=== PATIENT | male | born 1995 | race Caucasian/White ===

== ENCOUNTER 2018-09-08 23:29 | Inpatient (IN) | payer MEDICAID ==
[~2018-09-08] VITALS: Ht 121.9 cm; Wt 47.2 kg
[~2018-09-08 23:29] MED LIST: ACET650S11 RC; BISA-79 RC; BUDE0.5A4 IH; EPOE1VIA7 SQ; FAMO20VI10 IV; IPRA3AMP23 IH; LACO200V IVP; LEVE500V IVP; MVI IV; ONDA4VIA52 IVP; SOD62.5V IV; TPN
--- NOTE | 2018-09-08 23:45 | NUR ---
RN NOTES RECEIVED REPORT FROM [facility] . PT ARRIVED WITH EMT'S ON MECH VENT. PT HAS A SHILEY 8 XLT TRACH, TRACH SECURE AND PATENT. PT CONNECTED TO MECH VENT WITH THE FOLLOWING SETTINGS AC 14, 500, 35%, +5. PT 02 SAT IS 97% AND HR OF 141. VENT PLUGGED INTO RED OUTLET. ALARMS ARE ON AND AUDIBLE. PT SX'D. AMBU BAG IS AT BEDSIDE. PATIENT IS A/OX2. PATIENT PLACED ON BIODIESEL PRODUCT DEVELOPMENT MANAGER WITH ST. OSTOMY BAG IS IN PLACE, INTACT WITH NO LEAKAGE NOTED AT THIS TIME. RIGHT CHEST WALL PORT A CATH IS PATIENT AND INTACT. SKIN ASSESSMENT IS DONE. ALL SAFETY MEASURES ARE IMPLEMENTED, BED IN LOW, LOCKED POSITION, CALL LIGHT IN REACH. WILL CONTINUE TO MONITOR PATIENT CLOSELY.
[2018-09-09] VITALS: BP 153/68
[2018-09-09] MEDS ORDERED: CEFEPIME 1 GM in IV D5W 50 ML IV SCH ×4
[2018-09-09] MEDS ORDERED: TPN/PPN PER PHARMACY XX PRN
--- NOTE | 2018-09-09 00:09 | NUR ---
RT NOTE PT ARRIVED WITH EMT'S ON MECH VENT. PT HAS A SHILEY 8 XLT TRACH, TRACH SECURE AND PATENT. PT CONNECTED TO MECH VENT WITH THE FOLLOWING SETTINGS AC 14, 500, 35%, +5. PT 02 SAT IS 97% AND HR OF 141. RN IS AWARE AND AT BEDSIDE. VENT PLUGGED INTO RED OUTLET. ALARMS ARE ON AND AUDIBLE. PT SX'D. AMBU BAG IS AT BEDSIDE. Addendum: 09/09/18 at 0013 by MARIA C SALAZAR RT Amended: Links added.
[2018-09-09] MEDS ORDERED: IPRATROPIUM NEB FS 0.5 MG/2.5 ML AMPUL.NEB NEB PRN (00:30)
[2018-09-09] MEDS ORDERED: ALBUTEROL FS 2.5 MG/0.5 ML VIAL.NEB NEB PRN (00:30)
[2018-09-09 04:00] VITALS: BP 105/64
[2018-09-09] MEDS: LORAZEPAM INJ 2 MG/ML VIAL IV PRN (04:22)
[2018-09-09 07:36] LABS: BASOPHILS % (AUTO) 0.1 % (0.0-2.0); EOSINOPHILS % (AUTO) 0.3 % (0.0-6.0); HEMATOCRIT 46 % (39-51); HEMOGLOBIN 14.4 g/dL (13.5-17.5); LYMPHOCYTES # (AUTO) 0.3 /CMM (0.8-4.8); LYMPHOCYTES % (AUTO) 1.9 % (20.0-44.0); MEAN CORPUSCULAR HGB CONC 31 g/dl (31.0-36.0); MEAN CORPUSCULAR VOLUME 87 fL (80-96); MONOCYTES # (AUTO) 0.4 /CMM (0.1-1.30); MONOCYTES % (AUTO) 2.9 % (2.0-12.0); NEUTROPHILS # (AUTO) 14.1 /CMM (1.8-8.9); NEUTROPHILS % (AUTO) 94.8 % (43.0-81.0); PLATELET COUNT (AUTO) 130 /CMM (150-450); RED BLOOD CELL COUNT(AUTO) 5.36 MIL/uL (4.5-6.0); WHITE BLOOD COUNT (AUTO) 14.8 K/uL (4.3-11.0)
[2018-09-09] MEDS: PANTOPRAZOLE 40 MG VIAL IV SCH (07:46)
[2018-09-09 07:50] LABS: CALCIUM, SERUM 8.7 mg/dL (8.5-10.1); CREATININE 1.1 mg/dL (0.6-1.3); POTASSIUM 4.5 mmol/L (3.5-5.1)
[2018-09-09 08:00] VITALS: BP 99/56
--- NOTE | 2018-09-09 08:00 | NUR ---
RN NOTE: RECEIVED PATIENT IN BED, ASLEEP BUT SPONTANEOUSLY OPEN HIS EYES. VENT-TRACH DEPENDENT SATURATING CURRENT VENT SETTING WITH O2 SATURATION 98%. PATIENT'S RECTAL TEMP WAS 103.9F. COOLING MEASURES GIVEN WITH TYLENOL SUPPOSITORY WAS ADMINISTERED PER MD ORDER. NOTED WITH A (R) UPPER CHEST PERMACATH INTACT WITH 1 PORT AND WAS FLUSHING WELL. PATIENT ON (B) SOFT WRIST RESTRAINTS DUE TO ATTEMPTS OF PULLING HIS TRACHEOSTOMY. HOB ELEVATED. KEPT NPO. AWAITING FOR THE PHARMACY FOR THE TPN ORDER. WILL CONTINUE TO CLOSELY MONITOR THE PATIENT'S CONDITION. BED ALARMED AND LOCKED AT ALL TIMES. CALL LIGHT WITHIN REACH. COLOSTOMY NOTED WITH LIQUID STOOL. CURRENTLY ON CONTACT ISOLATION R/O C. DIFF. NEEDS ANTICIPATED.
[2018-09-09] MEDS: ACETAMINOPHEN 650 MG/SUPP.RECT RC PRN ×2 (08:06→16:15)
[2018-09-09] MEDS ORDERED: METO5VIA6 IV (08:19)
[2018-09-09] MEDS ORDERED: BLOO-668 IN (08:19)
[2018-09-09] MEDS ORDERED: INSU100V3 SQ (08:19)
[2018-09-09] MEDS ORDERED: BUDE0.5A IH (08:19)
[2018-09-09] MEDS ORDERED: NA P133E RC (08:19)
[2018-09-09] MEDS ORDERED: LORA2VIA6 IVP (08:19)
[2018-09-09] MEDS ORDERED: PANT40VI IV (08:19)
--- NOTE | 2018-09-09 09:30 | NUR ---
RN NOTE: RECHECKED PATIENT'S RECTAL TEMPERATURE AND IT WAS NOTED 99.9F.
[2018-09-09 12:00] VITALS: BP 105/56
--- NOTE | 2018-09-09 12:31 | NUR ---
RN NOTE: COLLECTED STOOL SPECIMEN FROM THE PATIENT. LIQUID STOOL NOTED. RECEIVED ORDER STOOL FOR C. DIFF, NOTED AND CARRIED OUT. SPECIMEN SENT TO LAB.
[2018-09-09] MEDS ORDERED: DEXTROSE 50%-WATER 50 ML DISP.SYRIN IV PRN (14:30)
[2018-09-09] MEDS ORDERED: TPN BAG #1 IV PRN ×8 (14:30)
[2018-09-09] MEDS ORDERED: FEE TPN 1 MIN EA MC ONE (14:33)
--- NOTE | 2018-09-09 15:23 | NUR ---
RN NOTE: CALLED AND PAGED ANGELA MANZANO NP RE: THE PROCALCITONIN RESULT. AWAITING FOR SIEVE MAKER'S RESPONSE.
--- NOTE | 2018-09-09 15:33 | NUR ---
RN NOTE: RECEIVED A RESPONSE FROM ANGELA MANZANO NP AND SHE GAVE NO NEW ORDER.
[2018-09-09 16:00] VITALS: BP 90/66
--- NOTE | 2018-09-09 16:11 | NUR ---
RN NOTE: PATIENT NOTED WITH 101.1F RECTAL TEMP. COOLING MEASURES PROVIDED. REQUESTED FOR A COOLING BLANKET. REMOVED EXTRA LINENS ON THE PATIENT'S BED. PAGED JERI MILLER ABOUT THIS PATIENT'S CONDITION.
[2018-09-09] MEDS ORDERED: IV NS 0.9% 1,000 ML IV STA (16:51)
--- NOTE | 2018-09-09 16:51 | NUR ---
RN NOTE: REPORTED TO JERI MILLER THAT THE PATIENT WAS HAVING LOW BLOOD PRESSURE AND STILL CONTINUED TO HAVE A HIGH GRADE FEVER 101F. TYLENOL SUPPOSITORY WAS GIVEN. COOLING MEASURES WERE PROVIDED. PER JERI MILLER OK TO GIVE 1L NS BOLUS NOW. ORDER, NOTED AND CARRIED OUT.
[2018-09-09] MEDS: BLOOD SUGAR DIAGNOSTIC 1 EACH STRIP IN SCH ×2 (17:38→23:56)
--- NOTE | 2018-09-09 17:42 | NUR ---
RN NOTE: INFORMED ANGELA MANZANO NP RE: THE PATIENT'S POOR VENOUS ACCESS AND HAS AN ORDER FOR IVF AND A TPN. JERI MILLER GAVE AN ORDER FOR MIDLINE INSERTION, NOTED AND CARRIED OUT.
--- NOTE | 2018-09-09 18:00 | NUR ---
RN NOTE: SPOKE WITH JERI RUDD (INFECTIOUS DISEASE) AND CLARIFIED WITH HER RE: THE DIFLUCAN IV AND BLOOD CULTURE ORDER. DATA ANALYST ETL DEVELOPER WAS INFORMED THAT THE PATIENT ALREADY GOT A BLOOD CULTURES DONE UPON ADMISSION. PER JERI RUDD SHE WANTED TO REPEAT IT. ACCDG. TO JERI RUDD SHE WANTED THE BLOOD CULTURE TO BE DONE PRIOR TO THE ADMINISTRATION OF THE DIFLUCAN. AWAITING FOR [facility] CONTRACT REPRESENTATIVE TO COME AND DRAW THE BLOOD CULTURE. WILL HOLD THE DIFLUCAN ADMINISTRATION UNTIL BLOOD CULTURE WILL BE DONE.
[2018-09-09] MEDS: IV NS 0.9% 1,000 ML BAG IV PRN (18:18)
--- NOTE | 2018-09-09 19:50 | NUR ---
RN NOTE: PATIENT REMAINED ON COOLING BLANKET WITH RECTAL PROBE TO MONITOR THE PATIENT'S TEMPERATURE. REMAINED ON CONTACT ISOLATION R/O C. DIFF. REPORT GIVEN TO PM SHIFT NURSE FOR CONTINUITY OF CARE.
[2018-09-09 20:00] VITALS: BP 90/68
--- NOTE | 2018-09-09 20:00 | NUR ---
TRUCK RAILROAD AND BUS MOTOR MECHANIC INITIAL NOTE RECEIVED PT AOX2 W/ CONFUSION, CONSTANTALLY PULLING ON LIFE SUSTAINING TUBES, SITTER AT BED SIDE, MAINTAINED ON VENT, S#8, AC 14, TV 500, FIO2 35 AND PEEP 5, WELL TOLERATED, NO FACIAL GRIMANCING NOTED, DENIES ANY PAIN. STARTED ON TPN, RUNNING ON RCW PERMACATH, WELL SECURED AND PATENT, WITH JAMSHID MIDLINE, DIFLUCAN STARTED, OSTOMY BAG IN PLACE, WELL SECURED, SKIN INTEGRITY MONITORED, KEPT CLEAN AND DRY, WELL REPOSITIONED, WILL CONT' TO MONITOR.
[2018-09-09] MEDS: FLUCONAZOLE IN NS,PREMIX 200 MG in PREMIX 1 EA IV SCH ×2 (20:33)
[2018-09-09] MEDS: CEFEPIME 2 GM in IV D5W 100 ML IV SCH (21:44)
[2018-09-10] VITALS: BP 102/68
[2018-09-10] MEDS: LORAZEPAM INJ 2 MG/ML VIAL IV PRN ×3 (02:22→22:02)
[2018-09-10 04:50] VITALS: BP 105/68
[2018-09-10] MEDS: BLOOD SUGAR DIAGNOSTIC 1 EACH STRIP IN SCH ×4 (05:54→23:27)
[2018-09-10] MEDS: IV NS 0.9% 1,000 ML BAG IV PRN ×2 (05:56→21:44)
[2018-09-10] MEDS: INSULIN REGULAR, HUMAN 100 UNIT/ML 3 ML VIAL SQ PRN ×4 (06:04→23:34)
--- NOTE | 2018-09-10 06:16 | NUR ---
PVC LOADER CLOSING NOTE ENDORSED PT AOX2 W/ CONFUSION, CONSTANTALLY PULLING ON LIFE SUSTAINING TUBES, SITTER AT BED SIDE, MAINTAINED ON VENT, S#8, AC 14, TV 500, FIO2 35 AND PEEP 5, WELL TOLERATED, NO FACIAL GRIMANCING NOTED, DENIES ANY PAIN. STARTED ON TPN, RUNNING ON RCW PERMACATH, WELL SECURED AND PATENT, WITH JAMSHID MIDLINE, DIFLUCAN STARTED, OSTOMY BAG IN PLACE, WELL SECURED, SKIN INTEGRITY MONITORED, KEPT CLEAN AND DRY, WELL REPOSITIONED, WILL CONT' TO MONITOR.
[2018-09-10 07:54] LABS: CREATININE 0.9 mg/dL (0.6-1.3); MAGNESIUM 2.1 mg/dL (1.8-2.4); PHOSPHORUS 2.7 mg/dL (2.5-4.9); POTASSIUM 4.1 mmol/L (3.5-5.1)
[2018-09-10 08:00] VITALS: BP 99/58
[2018-09-10] MEDS: ACETAMINOPHEN 650 MG/SUPP.RECT RC PRN ×2 (08:43→17:10)
[2018-09-10] MEDS: CEFEPIME 2 GM in IV D5W 100 ML IV SCH ×2 (09:30→21:44)
[2018-09-10] MEDS: PANTOPRAZOLE 40 MG VIAL IV SCH (09:30)
[2018-09-10] MEDS ORDERED: TPN BAG #2 IV PRN ×8 (10:30)
[2018-09-10] MEDS ORDERED: TPN BAG #3 IV PRN ×6 (10:30)
[2018-09-10 12:00] VITALS: BP 98/61
[2018-09-10] MEDS: METRONIDAZOLE 500MG/ NS 100ML 500 MG in PREMIX 1 EA IV SCH ×2 (13:51→21:44)
[2018-09-10 16:00] VITALS: BP 112/70
[2018-09-10] MEDS: FLUCONAZOLE IN NS,PREMIX 200 MG in PREMIX 1 EA IV SCH ×2 (17:12)
[2018-09-10] MEDS: VANCOMYCIN HCL 125 MG/2.5 ML ORAL.SUSP PO SCH ×2 (17:24→23:31)
--- NOTE | 2018-09-10 19:00 | NUR ---
RN NOTE EMBALMER/FUNERAL DIRECTOR ANGELA MANZANO NOTIFIED ABOUT PT YEAST IN THE BLOOD CX. AND CONFIRMED C DIFF POSITIVE IN STOOL. URINE COLLECTED FOR CX AND SENT TO LAB. PT REMAINED TACHYCARDIC AND FEBRILE DESPITE COOLING MEASURES AND TYLENOL. TPN INFUSING, IV FLUID INFUSING, ANTIBIOTICS ADMINISTERED.
--- NOTE | 2018-09-10 19:27 | NUR ---
RT NOTE: RECEIVED TRACH PT ON [facility] VENT ON NOTED SETTINGS PER MD ORDERS. TRACH IS PATENT AND SECURED. STREET CLEANING EQUIPMENT OPERATOR DONE. AMBU BAG @ BEDSIDE. SX DONE PRN. ALARMS ON AND AUDIBLE. PT IS CONFUSED AND HEART RATE IS AT 131. RN IS AWARE. WILL CONT TO MONITOR PT. Addendum: 09/11/18 at 0430 by RAO KU RT Amended: Links added.
[2018-09-10 20:00] VITALS: BP 121/64
--- NOTE | 2018-09-10 20:00 | NUR ---
RN INITIAL NOTE RECEIVED PT AOX2 W/ CONFUSION, ALESSANDRO SOFT RESTRAINT IN PLACE FOR PTS SAFETY. MAINTAINED ON VENT, S#8, AC 14, TV 500, FIO2 35 AND PEEP 5, PT ST ON TELE MONITOR HR 130S, TPN, RUNNING ON RCW PERMACATH, WELL SECURED AND PATENT, WITH JAMSHID MIDLINE, OSTOMY BAG IN PLACE, WELL SECURED, SKIN INTEGRITY MONITORED, KEPT CLEAN AND DRY, WELL REPOSITIONED, WILL CONT' TO MONITOR. Addendum: 09/11/18 at 0623 by FUENTES MC RN PATIENT ON COOLING BLANKET WITH RECTAL PROBE TO MONITOR THE PATIENT'S TEMPERATURE
--- NOTE | 2018-09-10 22:00 | NUR ---
2200 JERI ARNOLD MADE AWARE OF PATIENT'S SWOLLEN FACE AND HE SAID HE WILL COME AND CHECK PATIENT.
--- NOTE | 2018-09-10 22:15 | NUR ---
2215 JERI ARNOLD AT BEDSIDE AND EXAMINED PATIENT WITH ORDER TO KVO IVF AND TO START PATIENT OF SOLUMEDROL, PEPCID, AND BENADRYL ORDERED. ORDER NOTED AND CARRIED OUT.
[2018-09-10] MEDS ORDERED: methylPREDNISolone SOD SUCC 125 MG/2ML VIAL IV ONE (22:30)
[2018-09-10] MEDS ORDERED: diphenhydrAMINE HCL 50 MG/ML VIAL IV PRN (22:30)
[2018-09-10] MEDS: FAMOTIDINE/PF INJ 20 MG/2 ML VIAL IV SCH (23:27)
[2018-09-11] VITALS: BP 109/70
[2018-09-11 04:00] VITALS: BP 108/65
[2018-09-11] MEDS: BLOOD SUGAR DIAGNOSTIC 1 EACH STRIP IN SCH ×3 (05:23→17:57)
[2018-09-11] MEDS: METRONIDAZOLE 500MG/ NS 100ML 500 MG in PREMIX 1 EA IV SCH ×3 (05:23→22:54)
[2018-09-11] MEDS: VANCOMYCIN HCL 125 MG/2.5 ML ORAL.SUSP PO SCH ×3 (05:24→18:00)
[2018-09-11] MEDS: INSULIN REGULAR, HUMAN 100 UNIT/ML 3 ML VIAL SQ PRN ×3 (05:53→18:02)
--- NOTE | 2018-09-11 06:19 | NUR ---
RN CLOSING NOTE: PATIENT REMAINED ON COOLING BLANKET WITH RECTAL PROBE TO MONITOR THE PATIENT'S TEMPERATURE. COOLING MEASURES DONE OVERNIGHT. TO CONTROL TEMP UP TO 102.5. ALL DUE MEDS GIVEN ORDERED. ALL NEEDS ANTICIPATED AND MET. PT REMAINED ON CONTACT ISOLATION R/O C. DIFF. WILL ENDORSE TO AM SHIFT NURSE FOR CONTINUITY OF CARE.
--- NOTE | 2018-09-11 07:15 | NUR ---
PHYSICIAN/ALLERGY/IMMUNOLOGY INITIAL NOTE RECEIVED PT AOX1 W/ CONFUSION, ALESSANDRO SOFT RESTRAINT IN PLACE FOR PTS SAFETY. MAINTAINED ON VENT, S#8, AC 14, TV 500, FIO2 35 AND PEEP 5, PT Sr ON TELE MONITOR HR 88, TPN, RUNNING ON RCW PERMACATH, WELL SECURED AND PATENT, WITH JAMSHID MIDLINE, OSTOMY BAG IN PLACE, WELL SECURED, SKIN INTEGRITY MONITORED, KEPT CLEAN AND DRY, WELL REPOSITIONED, WILL CONTINUE TO MONITOR. PATIENT ON COOLING BLANKET WITH RECTAL PROBE TO MONITOR THE PATIENT'S TEMPERATURE.
[2018-09-11 07:39] LABS: CALCIUM, SERUM 8.3 mg/dL (8.5-10.1); CREATININE 0.8 mg/dL (0.6-1.3); PHOSPHORUS 3.4 mg/dL (2.5-4.9)
--- NOTE | 2018-09-11 07:40 | NUR ---
RT PATIENT REC'D TRACHED ON [facility] VENT WITH ORDERED SETTINGS TRISTAN WELL. VENT ALARMS CHECKED + AUDIBLE. PATIENT TRACH SECURE AND IN PROPER POSITION. AIRWAY CHECKED AND PATENT. PATIENT SUCTIONED WITH SMALL/MOD AMT OF PALE SEMITHICK SECRETIONS. B/S DIM COARSE. PATIENT APPEARS COMFORTABLE AND IN NO DISTRESS AT THIS TIME. VENT PLUGGED INTO RED OUTLET. AMBU BAG AT [facility]. CONT CURRENT PLAN OF RESP CARE. Addendum: 09/11/18 at 1024 by CHRISTEL SANTOS RT Amended: Links added.
[2018-09-11 08:00] VITALS: BP 110/43
[2018-09-11 08:32] LABS: BASOPHILS # (AUTO) 0.1 /CMM (0.0-0.2); BASOPHILS % (AUTO) 0.6 % (0.0-2.0); EOSINOPHILS % (AUTO) 1.7 % (0.0-6.0); HEMATOCRIT 46 % (39-51); HEMOGLOBIN 13.8 g/dL (13.5-17.5); LYMPHOCYTES # (AUTO) 0.2 /CMM (0.8-4.8); LYMPHOCYTES % (AUTO) 2.1 % (20.0-44.0); MEAN CORPUSCULAR HGB CONC 30 g/dl (31.0-36.0); MEAN CORPUSCULAR VOLUME 90 fL (80-96); MONOCYTES # (AUTO) 0.4 /CMM (0.1-1.30); MONOCYTES % (AUTO) 4.1 % (2.0-12.0); NEUTROPHILS # (AUTO) 8.7 /CMM (1.8-8.9); NEUTROPHILS % (AUTO) 91.5 % (43.0-81.0); PLATELET COUNT (AUTO) 70 /CMM (150-450); RED BLOOD CELL COUNT(AUTO) 5.08 MIL/uL (4.5-6.0); WHITE BLOOD COUNT (AUTO) 9.5 K/uL (4.3-11.0)
[2018-09-11 08:58] LABS: BAND % (MANUAL) 31 % (0.0-5.0); EOSINOPHILS % (MANUAL) 1 % (0-4); LYMPHOCYTES % (MANUAL) 2 % (16-48); MONOCYTES % (MANUAL) 7 % (0-11.0); NEUTROPHILS % (MANUAL) 59 (42-76)
[2018-09-11] MEDS ORDERED: FAT EMULSION 20% 500 ML in PREMIX 1 EA IV SCH (09:00)
[2018-09-11] MEDS: PANTOPRAZOLE 40 MG VIAL IV SCH (09:26)
[2018-09-11] MEDS: FAMOTIDINE/PF INJ 20 MG/2 ML VIAL IV SCH (09:27)
[2018-09-11] MEDS: CEFEPIME 2 GM in IV D5W 100 ML IV SCH ×2 (10:40→20:18)
[2018-09-11 12:00] VITALS: BP 108/64
[2018-09-11] MEDS: MICAFUNGIN SODIUM 150 MG in IV NS 0.9% 100 ML IV SCH (12:40)
[2018-09-11] MEDS ORDERED: TPN BAG #4 IV PRN ×4 (13:00)
[2018-09-11 16:00] VITALS: BP_SYST 130; BP_SYST 155; BP_DIAS 104; BP_DIAS 66
--- NOTE | 2018-09-11 17:05 | NUR ---
CONDUCTOR/BRAKEMAN CLOSING NOTE PT AOX1 W/ CONFUSION, ALESSANDRO SOFT RESTRAINT IN PLACE FOR PTS SAFETY. MAINTAINED ON VENT, S#8, AC 14, TV 500, FIO2 35 AND PEEP 5, PT ST ON TELE MONITOR HR 120, TPN AND LIPIDS RUNNING ON RCW PERMACATH, WELL SECURED AND PATENT, WITH JAMSHID MIDLINE, OSTOMY BAG IN PLACE, WELL SECURED, SKIN INTEGRITY MONITORED, PATIENT KEPT CLEAN AND DRY, PATIENT ON WARM BLANKET WITH RECTAL PROBE TO MONITOR THE PATIENT'S TEMPERATURE. ENDORSED TO PRODUCTION FLOATER NURSE FOR GEORGE.
--- NOTE | 2018-09-11 18:00 | NUR ---
PRODUCT EXPERT NOTES ANGELA PLASTIC PARTS DESIGNER ORDERED SUPPOSITORY VANCOMYCIN 125MG, CALLED PHARMACY FOR CLARIFICATION IF THERE IS VANCOMYCIN SUPPOSITORY, PHARMACY SAID ONLY VANCOMYCIN 500MG RECTAL ENEMA Q8H IS AVAILABLE AND OKAY TO GIVE. NOTIFIED CHARGE NURSE AND SAID APPROVED TO ORDER VANCOMYCIN 500MG RECTAL ENEMA.
--- NOTE | 2018-09-11 19:30 | NUR ---
PC SUPPORT SPECIALIST NOTE: RECEIVED PT ON BED WITH NO APPARENT DISTRESS NOTED. NO FACIAL GRIMACING OR ANY SIGNS OF PAIN NOTED. ON [facility] VENT, SETTINGS ORDERED. TEMP WNL AT THIS TIME. SINUS TACHY ON TELE MONITOR HR 135BPM. RIGHT IJ AND RIGHT UPPER ARM MIDLINE INTACT AND PATENT, FLUSHING WELL. KEPT CLEAN, DRY AND COMFORTABLE. SAFETY AND FALL PRECAUTIONS OBSERVED AND MAINTAINED. WILL CONTINUE TO MONITOR PT
[2018-09-11 20:00] VITALS: BP 117/73
[2018-09-11] MEDS: VANCOMYCIN FOR RECTAL ENEMA 500 MG RC SCH (20:31)
--- NOTE | 2018-09-11 20:59 | NUR ---
PT RECEIVED ON VENT VIA TRACH. AIRWAY PATENT. SECURE VIA TRACH TIE. PT RESPONSIVE TO PAIN. AMBU BAG AT BEDSIDE. ALARMS SET AND AUDIBLE. DISCONNECT ALARMS CHECKED. VENT PLUGGED INTO RED OUTLET. SUCTIONED A SMALL AMOUNT OF THICK YELLOW SECRETIONS. SUCTIONED MOUTH VIA YANKAUER. HEAD OF BED AT 30 DEGREES PT RECEIVING NO TREATMENTS AT THIS TIME. Addendum: 09/11/18 at 2100 by BALAJI PIERRE RT Amended: Links added.
--- NOTE | 2018-09-11 23:19 | NUR ---
DISTRIBUTOR CLEANER NOTE: TEMP WENT UP TO 100.1. COOLING MEASURES PROVIDED. RECHECKED TEMP, IT WENT DOWN TO 98.7. WILL CONTINUE TO MONITOR PT
[2018-09-12] VITALS: BP 134/77
[2018-09-12] MEDS: BLOOD SUGAR DIAGNOSTIC 1 EACH STRIP IN SCH ×4 (00:15→17:42)
[2018-09-12] MEDS: INSULIN REGULAR, HUMAN 100 UNIT/ML 3 ML VIAL SQ PRN ×2 (00:17→05:16)
[2018-09-12] MEDS: LORAZEPAM INJ 2 MG/ML VIAL IV PRN (02:39)
[2018-09-12 04:00] VITALS: BP 99/40
[2018-09-12] MEDS: VANCOMYCIN FOR RECTAL ENEMA 500 MG RC SCH ×3 (04:48→21:20)
[2018-09-12] MEDS: METRONIDAZOLE 500MG/ NS 100ML 500 MG in PREMIX 1 EA IV SCH ×3 (05:13→22:46)
--- NOTE | 2018-09-12 05:23 | NUR ---
MASTER GREAT LAKES NOTE: PT HAD AN EPISODE OF DESATURATION. ANIMAL HUMANE AGENT SUPERVISOR SHAYNE ARNOLD, PRODUCTION LINE MANAGER MADE AWARE WITH NO NEW ORDERS. WILL CONTINUE TO MONITOR PT. Addendum: 09/12/18 at 0656 by MARIE ALAS RN RT NOTIFIED, PER RT JUST GIVE ATIVAN. ATIVAN GIVEN. WILL CONTINUE TO MONITOR PT.
[2018-09-12 06:26] LABS: BASOPHILS % (AUTO) 0.1 % (0.0-2.0); EOSINOPHILS % (AUTO) 2.3 % (0.0-6.0); HEMATOCRIT 48 % (39-51); HEMOGLOBIN 14.6 g/dL (13.5-17.5); LYMPHOCYTES # (AUTO) 0.4 /CMM (0.8-4.8); LYMPHOCYTES % (AUTO) 1.9 % (20.0-44.0); MEAN CORPUSCULAR HGB CONC 31 g/dl (31.0-36.0); MEAN CORPUSCULAR VOLUME 90 fL (80-96); MONOCYTES # (AUTO) 0.6 /CMM (0.1-1.30); MONOCYTES % (AUTO) 3.1 % (2.0-12.0); NEUTROPHILS % (AUTO) 92.6 % (43.0-81.0); RED BLOOD CELL COUNT(AUTO) 5.28 MIL/uL (4.5-6.0); WHITE BLOOD COUNT (AUTO) 20.5 K/uL (4.3-11.0)
--- NOTE | 2018-09-12 06:33 | NUR ---
SUPPLIER ENGINEER NOTE: PT IN BED WITH NO APPARENT DISTRESS NOTED AT THIS TIME. [facility], SETTINGS ORDERED. SINUS TACHY ON TELE MONITOR HR 133BPM. NO FEVER NOTED AT THIS TIME, TEMP 98.9. KEPT CLEAN, DRY AND COMFORTABLE. SAFETY AND FALL PRECAUTIONS OBSERVED AND MAINTAINED. WILL ENDORSE TO DAY SHIFT RN FOR CONTINUITY OF CARE
[2018-09-12 06:53] LABS: PLATELET COUNT (AUTO) 30 /CMM (150-450)
--- NOTE | 2018-09-12 07:10 | NUR ---
GROOVER RUNNER OPENING NOTES RECEIVED PT LYING ON BED,OBTUNDED.ON TELE HR IS 135 WITH SINUS TACHYCARDIA.PT LOOKS RESTLESS AND MOVING ON THE BED.TEMPERATURE NOTED 99F.COL COMPRESS IS IN PLACE.ON VENT,TOLERATING WELL.O2 SAT NOTED WITH 89-90%.NO SOB AND ACUTE DISTRESS NOTED.RIGHT IJ CENTRAL VENOUS CATH AND RIGHT UA MIDLINE PRESENT,SITE IS CLEAN,DRY AND INTACT.NO INFILTRATION NOTED.COLOSTOMY AND G TUBE IS IN PLACE.SAFETY IS MAINTAINED FABY LL TIMES.BED IS IN LOW POSITION AND LOCKED.CALL LIGHT IS WITHIN REACH.WILL CONTINUE TO MONITOR THE PT CLOSELY.
[2018-09-12 07:25] LABS: BAND % (MANUAL) 18 % (0.0-5.0); LYMPHOCYTES % (MANUAL) 1 % (16-48); MONOCYTES % (MANUAL) 1 % (0-11.0); NEUTROPHILS % (MANUAL) 80 (42-76)
[2018-09-12 08:00] VITALS: BP 111/85
[2018-09-12 08:15] LABS: CALCIUM, SERUM 8.9 mg/dL (8.5-10.1); CREATININE 0.8 mg/dL (0.6-1.3); MAGNESIUM 1.7 mg/dL (1.8-2.4); PHOSPHORUS 2.2 mg/dL (2.5-4.9); POTASSIUM 3.9 mmol/L (3.5-5.1)
[2018-09-12] MEDS ORDERED: TPN BAG #5 IV PRN ×7 (08:30)
[2018-09-12] MEDS ORDERED: ANESTHESIA TRAY IN PYXIS 1 EA TRAY MC ONE (08:45)
[2018-09-12] MEDS: PANTOPRAZOLE 40 MG VIAL IV SCH (09:02)
[2018-09-12] MEDS: CEFEPIME 2 GM in IV D5W 100 ML IV SCH (09:03)
[2018-09-12] MEDS: FAMOTIDINE/PF INJ 20 MG/2 ML VIAL IV SCH (09:03)
[2018-09-12] MEDS: MICAFUNGIN SODIUM 150 MG in IV NS 0.9% 100 ML IV SCH (11:27)
[2018-09-12 12:00] VITALS: BP 116/84
--- NOTE | 2018-09-12 12:12 | NUR ---
HAMMERER HELPER NOTES OR STAFF PICKED UP THE PT FOR REMOVAL OF PORT A CATH.PT VITAL SIGNS ARE WNL,NO TEMPERATURE NOTED.ALL THE CONSENTS ARE SIGNED.
[2018-09-12] MEDS ORDERED: LIDOCAINE HCL/PF 1% 30 ML SDV ONE (12:28)
[2018-09-12] MEDS ORDERED: MEROPENEM 1 G in IV NS 0.9% 100 ML IV SCH (13:00)
--- NOTE | 2018-09-12 13:30 | NUR ---
HEEL SEAT LASTER NOTES PT CAME BACK FROM OR AFTER REMOVAL OF PORT-A CATH ON RIGHT CHEST.NO BLEEDING NOTED AND PRESSURE DRESSING APPLIED.NO COMPLICATIONS NOTED AND VITAL SIGNS CHECKED AND RECORDED.
--- NOTE | 2018-09-12 13:41 | NUR ---
WRAPPER HANDS SPRAYER NOTES VANCOMYCIN ENEMA VIA COLOSTOMY IS GIVEN BY ,GI.NO COMPLICATIONS NOTED.
[2018-09-12] MEDS ORDERED: TPN BAG #6 IV PRN ×5 (15:00)
[2018-09-12 16:00] VITALS: BP 121/76
[2018-09-12] MEDS ORDERED: Magnesium 1 GM/2 ML VIAL IV SCH (18:30)
[2018-09-12] MEDS: Magnesium 1GM/D5W 100ML PREMIX 100 ML IV SCH ×2 (18:34→21:20)
--- NOTE | 2018-09-12 18:35 | NUR ---
RT END OF THE SHIFT; PT 22 Y OLD MALE AWAKE NONE RESPONSIVE REMAIN TRACH'D AMARIS XLT # 8 ON VENT WITH NOTED SETTINGS, ALARMS ARE SET AND FUNCTIONAL. @ 0715, PLACED PT. ON 50% FIO2 DUE TO DESATURATION TO KEEP SPO2 OVER 92% LOW PERFUSION NOTED AND WARMER PLACED TO GET BETTER SIGNAL ON PULSE-OX PT. TOOK TO OR T/O DAY AND CAME BACK TO 114-1 EQUAL CHEST RISE NOTED PT. SUX'D FOR MINIMAL AMT WHITE/YELLOW SECRETIONS, AMBU BAG REMAIN AT THE BEDSIDE. HME CHANGED , VENT PLUGGED INTO RED OUTLET, AND CONTINUE TO MONITOR AND REPORT WILL PASS TO PM SHIFT. Addendum: 09/12/18 at 1838 by ABHI VICTOR RT Amended: Links added.
--- NOTE | 2018-09-12 18:59 | NUR ---
CALENDER OPERATOR NOTES PT IS LYING ON BED.IV LINE IS IN PLACE.MAGNESIUM IV IS FLOWING.NOTED WITH SINUS TACHYCARDIA.ALL THE DUE MEDS ARE GIVEN.NO BLEEDING NOTED FOR S/P REMOVAL OF PORT A CATH.ENDORSED TO DIRECTOR OF INFECTION CONTROL RN FOR GEORGE.
[2018-09-12] MEDS ORDERED: DOSING PER PHARMACY-TOBRA INHALATION 1 EA XX PRN (19:30)
[2018-09-12 20:00] VITALS: BP 116/69
[2018-09-12] MEDS: TOBRAMYCIN 80 MG/2 ML VIAL INH SCH (21:50)
[2018-09-13] VITALS: BP 111/66
[2018-09-13] MEDS: BLOOD SUGAR DIAGNOSTIC 1 EACH STRIP IN SCH ×4 (00:08→18:02)
[2018-09-13] MEDS: INSULIN REGULAR, HUMAN 100 UNIT/ML 3 ML VIAL SQ PRN (00:11)
[2018-09-13] MEDS: ACETAMINOPHEN 650 MG/SUPP.RECT RC PRN ×2 (00:12→19:22)
[2018-09-13 04:00] VITALS: BP 140/69
[2018-09-13] MEDS: VANCOMYCIN FOR RECTAL ENEMA 500 MG RC SCH ×3 (05:40→20:47)
[2018-09-13] MEDS: METRONIDAZOLE 500MG/ NS 100ML 500 MG in PREMIX 1 EA IV SCH ×3 (05:40→21:02)
--- NOTE | 2018-09-13 06:27 | NUR ---
PT REC'D TRACHED ON [facility] VENT ON AC MODE. UPON INITIAL ASSESSMENT ON PT, AT BEGINNING OF SHIFT, PT SHOWED SWELLING ON RIGHT CHEST, SHOULDER, AND FACE. NO CREPITUS FELT ON PT'S SKIN NOTED. PT ALSO SHOWS HIGH PRESSURES ON VENTILATOR, HOWEVER PT MAINTAINS ADEQUATE VOLUMES AND O2 SAT > 92%. CONTAINER CRANE OPERATOR AWARE AND XRAY PENDING FOR AM SHIFT. NO SOB OR RESP DISTRESS NOTED. SX'D FOR THICK MOD AMT OF COLLINS SECRETIONS. TRACH PATENT AND SECURED. ALARMS ARE SET AND AUDIBLE. VENT PLUGGED INTO RED OUTLET. AMBU BAG BEDSIDE. WILL CONTINUE TO MONITOR. Addendum: 09/13/18 at 0632 by LEANNE MULLER RT Amended: Links added.
[2018-09-13 07:07] LABS: BASOPHILS % (AUTO) 0.1 % (0.0-2.0); EOSINOPHILS % (AUTO) 1.1 % (0.0-6.0); HEMATOCRIT 37 % (39-51); HEMOGLOBIN 11.2 g/dL (13.5-17.5); LYMPHOCYTES # (AUTO) 0.9 /CMM (0.8-4.8); LYMPHOCYTES % (AUTO) 8.2 % (20.0-44.0); MEAN CORPUSCULAR HGB CONC 30 g/dl (31.0-36.0); MEAN CORPUSCULAR VOLUME 87 fL (80-96); MONOCYTES # (AUTO) 1.1 /CMM (0.1-1.30); MONOCYTES % (AUTO) 10.4 % (2.0-12.0); NEUTROPHILS # (AUTO) 8.6 /CMM (1.8-8.9); NEUTROPHILS % (AUTO) 80.2 % (43.0-81.0); RED BLOOD CELL COUNT(AUTO) 4.24 MIL/uL (4.5-6.0); WHITE BLOOD COUNT (AUTO) 10.7 K/uL (4.3-11.0)
[2018-09-13 07:18] LABS: PLATELET COUNT (AUTO) 17 /CMM (150-450)
--- NOTE | 2018-09-13 07:19 | NUR ---
RT RECEIVED PT TRACH ON VENT. TANNING DRUM OPERATOR DONE AND TRACH IS SECURE. VENT ALARMS CHECKED AND AUDIBLE. B/S ALESSANDRO RHONCHI. SX WITH SML THK WHITE/CLEAR SECRETIONS. AMBU BAG NOTED. PT ON CONTINUOUS PULSE OX. PT TOLERATING SETTINGS WELL. NO SOB OR RESP DISTRESS NOTED WILL CONTINUE TO MONITOR T/O SHIFT.
--- NOTE | 2018-09-13 07:33 | NUR ---
TELE/RN NOTES: PLATELETS LEVEL IS 17 CALLED BY LAB AT 07:18 A.M. INFORMED AM NURSE TEJ. REPORT GIVEN TO NEXT SHIFT NURSE FOR GEORGE.
[2018-09-13 07:45] LABS: CALCIUM, SERUM 8.9 mg/dL (8.5-10.1); CREATININE 0.8 mg/dL (0.6-1.3); MAGNESIUM 2.2 mg/dL (1.8-2.4); PHOSPHORUS 1.4 mg/dL (2.5-4.9); POTASSIUM 3.4 mmol/L (3.5-5.1)
[2018-09-13 07:54] LABS: BAND % (MANUAL) 12 % (0.0-5.0); LYMPHOCYTES % (MANUAL) 2 % (16-48); MONOCYTES % (MANUAL) 6 % (0-11.0); NEUTROPHILS % (MANUAL) 80 (42-76)
[2018-09-13 08:00] VITALS: BP 102/65
--- NOTE | 2018-09-13 09:00 | NUR ---
RN NOTE SVP DIGITAL SALES ARGENTINA VIZCAINO INFORMED ABOUT PLATELET LEVEL =17. NO NEW ORDERS, NO TRANSFUSION DUE TO TPT PENTECOSTALISM. WILL MONITOR, NO BLEEDING NOTED.
[2018-09-13] MEDS: PANTOPRAZOLE 40 MG VIAL IV SCH (09:27)
[2018-09-13] MEDS: FAMOTIDINE/PF INJ 20 MG/2 ML VIAL IV SCH (09:27)
[2018-09-13] MEDS: MICAFUNGIN SODIUM 150 MG in IV NS 0.9% 100 ML IV SCH (11:00)
[2018-09-13 12:00] VITALS: BP 91/64
[2018-09-13] MEDS: TOBRAMYCIN 80 MG/2 ML VIAL INH SCH ×2 (13:07→21:09)
[2018-09-13] MEDS: FLUCONAZOLE IN NS 100 MG in PREMIX 1 EA IV SCH ×2 (14:33)
[2018-09-13] MEDS ORDERED: TPN BAG #7 IV PRN ×7 (15:00)
[2018-09-13 16:00] VITALS: BP 155/87
[2018-09-13 20:00] VITALS: BP 104/80
--- NOTE | 2018-09-13 20:00 | NUR ---
TELE/RN NOTES: RECEIVED PT. IN BED W/ EYES CLOSED. NON VERBAL. W/ FACE AND NECK W/ EDEMA NOTED. PT. ON TELE MONITOR W/ HR IS 135 WITH SINUS TACHYCARDIA. PT LOOKS RESTLESS AND MOVING ON THE BED. TEMP OF 99. 7 NOTED. COL COMPRESS IS IN PLACE. ON MECHANICAL VENT, TOLERATING WELL.O2 SAT NOTED WITH 90- 94 %. NO FACIAL GRIMACES OR MOANING NOTED. NO SOB AND ACUTE DISTRESS NOTED. S/P DC'D RIGHT IJ CENTRAL VENOUS CATH AND RIGHT UA MIDLINE PRESENT,SITE IS CLEAN,DRY AND INTACT.NO INFILTRATION NOTED. COLOSTOMY IN PLACE SAFETY IS MAINTAINED AT ALL TIMES. BED IS IN LOW POSITION AND LOCKED. CALL LIGHT IS WITHIN REACH. WILL CONTINUE TO MONITOR THE PT CLOSELY.
[2018-09-14] VITALS: BP 133/92
--- NOTE | 2018-09-14 00:05 | NUR ---
RT NOTE PT RECEIVED ON [facility] VENT ON THE FOLLOWING NOTED SETTINGS. NO RESP DISTRESS NOTED AT THIS TIME. PT SX'D, SMALL THIN YELLOW/WHITE SECRETIONS. MISTY DUE AT 2100. VENT IS PLUGGED INTO RED OUTLET. ALARMS ARE ON AND AUDIBLE. AMBU BAG IS AT BEDSIDE. WILL CONT TO MONITOR PT. Addendum: 09/14/18 at 0007 by MARIA C SALAZAR RT Amended: Links added.
[2018-09-14] MEDS: BLOOD SUGAR DIAGNOSTIC 1 EACH STRIP IN SCH ×5 (00:18→23:01)
[2018-09-14] MEDS: INSULIN REGULAR, HUMAN 100 UNIT/ML 3 ML VIAL SQ PRN ×3 (00:21→18:41)
[2018-09-14] MEDS: LORAZEPAM INJ 2 MG/ML VIAL IV PRN ×2 (03:31→19:12)
[2018-09-14 04:00] VITALS: BP 102/61
[2018-09-14] MEDS: VANCOMYCIN FOR RECTAL ENEMA 500 MG RC SCH ×3 (05:27→21:12)
[2018-09-14] MEDS: METRONIDAZOLE 500MG/ NS 100ML 500 MG in PREMIX 1 EA IV SCH ×3 (05:28→21:12)
--- NOTE | 2018-09-14 07:00 | NUR ---
IMPREGNATING HELPER OPENING NOTES RECEIVED PT LYING ON BED.NOTED PT IS OBTUNDED,NON VERBAL.WITH VENT DEPENDENT,TOLERATING WELL.ON TELE HR IS 114 WITH SINUS TACHYCARDIA.NO SOB AND ACUTE DISTRESS NOTED.SWELLING NOTED ON NECK AREA,MIDLINE IS ON RIGHT UPPER ARM,SITE IS CLEAN,DRY AND INTACT.SAFETY IS MAINTAINED AT ALL TIMES.BED IS IN LOW POSITION AND LOCKED.CALL LIGHT IS WITHIN REACH.WILL CONTINUE TO MONITOR THE PT CLOSELY.
--- NOTE | 2018-09-14 07:25 | NUR ---
TELE/RN NOTES: BED SIDE REPORT GIVEN TO AM NURSE FOR GEORGE.
[2018-09-14 08:00] VITALS: BP 100/71
[2018-09-14] MEDS: FAMOTIDINE/PF INJ 20 MG/2 ML VIAL IV SCH (08:20)
[2018-09-14] MEDS: PANTOPRAZOLE 40 MG VIAL IV SCH (08:20)
[2018-09-14] MEDS: TOBRAMYCIN 80 MG/2 ML VIAL INH SCH ×2 (08:47→21:43)
[2018-09-14] MEDS ORDERED: IOHEXOL-300 100 ML VIAL IV ONE (10:28)
[2018-09-14] MEDS ORDERED: IV NS 0.9% 250 ML IV ONE (10:28)
[2018-09-14] MEDS ORDERED: CT SWABBABLE VALVE TRANS SET 1 EA INFUS.SET MC ONE (10:29)
[2018-09-14 12:00] VITALS: BP 132/77
[2018-09-14] MEDS: FLUCONAZOLE IN NS 100 MG in PREMIX 1 EA IV SCH ×2 (13:02)
[2018-09-14 14:31] LABS: EOSINOPHILS % (AUTO) 1.3 % (0.0-6.0); HEMATOCRIT 38 % (39-51); HEMOGLOBIN 11.4 g/dL (13.5-17.5); LYMPHOCYTES # (AUTO) 0.6 /CMM (0.8-4.8); LYMPHOCYTES % (AUTO) 5.7 % (20.0-44.0); MEAN CORPUSCULAR HGB CONC 30 g/dl (31.0-36.0); MEAN CORPUSCULAR VOLUME 87 fL (80-96); MONOCYTES # (AUTO) 1.2 /CMM (0.1-1.30); MONOCYTES % (AUTO) 10.1 % (2.0-12.0); NEUTROPHILS # (AUTO) 9.5 /CMM (1.8-8.9); NEUTROPHILS % (AUTO) 82.9 % (43.0-81.0); RED BLOOD CELL COUNT(AUTO) 4.31 MIL/uL (4.5-6.0); WHITE BLOOD COUNT (AUTO) 11.4 K/uL (4.3-11.0)
[2018-09-14 14:45] LABS: PLATELET COUNT (AUTO) 19 /CMM (150-450)
[2018-09-14 14:54] LABS: ALBUMIN 2.1 g/dL (3.4-5.0); BILIRUBIN,TOTAL 0.9 mg/dL (0.2-1.0); CALCIUM, SERUM 8.8 mg/dL (8.5-10.1); CREATININE 0.9 mg/dL (0.6-1.3); MAGNESIUM 1.9 mg/dL (1.8-2.4); POTASSIUM 3.3 mmol/L (3.5-5.1); TOTAL PROTEIN, SERUM 5.7 g/dL (6.4-8.2)
[2018-09-14 15:28] LABS: BAND % (MANUAL) 28 % (0.0-5.0); EOSINOPHILS % (MANUAL) 2 % (0-4); LYMPHOCYTES % (MANUAL) 8 % (16-48); METAMYELOCYTES % 1 % (0-0); MONOCYTES % (MANUAL) 6 % (0-11.0); MYELOCYTES % 1 % (0-0); NEUTROPHILS % (MANUAL) 54 (42-76)
[2018-09-14 16:00] VITALS: BP 120/73
--- NOTE | 2018-09-14 17:00 | NUR ---
FOUNTAIN ROLLER ASSEMBLER NOTES PLATELET IS 19,NOTED TO ARGENTINA VIZCAINO EXPRESSIVE MUSIC THERAPIST,NNO NOTED.
--- NOTE | 2018-09-14 18:50 | NUR ---
DIRECTOR BIOMEDICAL ENGINEERING CLOSING NOTES PT IS PLYING ON BED.ON VENT.NO SOB AND ACUTE DISTRESS NOTED.ENDORSED TO ENGINEERING VICE PRESIDENT RN FOR GEORGE.
--- NOTE | 2018-09-14 19:21 | NUR ---
RT [facility] AC settings. trach secure and patent. sx for small amt of secretions. will cont to monitor closely. Addendum: 09/14/18 at 1924 by MELISSA LAW RT Amended: Links added.
[2018-09-14 20:00] VITALS: BP 108/71
--- NOTE | 2018-09-14 20:42 | NUR ---
HOSPITAL LIBRARIAN INITIAL NOTES RECEIVED PT LYING ON BED.NOTED PT IS OBTUNDED,NON VERBAL.WITH VENT DEPENDENT,TOLERATING WELL.ON TELE HR IS 133 WITH SINUS TACHYCARDIA.NO SOB AND ACUTE DISTRESS NOTED.SWELLING NOTED ON NECK AREA, AND HEAD. MIDLINE IS ON RIGHT UPPER ARM,SITE IS CLEAN,DRY AND INTACT.SAFETY IS MAINTAINED AT ALL TIMES.BED IS IN LOW POSITION AND LOCKED.CALL LIGHT IS WITHIN REACH.WILL CONTINUE TO MONITOR THE PT CLOSELY.
[2018-09-14] MEDS ORDERED: TPN IV PRN ×5 (21:00)
[2018-09-15] VITALS: BP 97/61
[2018-09-15 04:00] VITALS: BP 121/81
[2018-09-15] MEDS: VANCOMYCIN FOR RECTAL ENEMA 500 MG RC SCH ×3 (04:25→21:01)
[2018-09-15] MEDS: BLOOD SUGAR DIAGNOSTIC 1 EACH STRIP IN SCH ×4 (05:08→23:25)
[2018-09-15] MEDS: METRONIDAZOLE 500MG/ NS 100ML 500 MG in PREMIX 1 EA IV SCH ×3 (05:08→21:01)
[2018-09-15] MEDS: INSULIN REGULAR, HUMAN 100 UNIT/ML 3 ML VIAL SQ PRN ×3 (06:05→17:14)
--- NOTE | 2018-09-15 06:10 | NUR ---
CONVEYOR BELT INSTALLER CLOSING NOTES ENDORSE PT LYING ON BED.NOTED PT IS OBTUNDED,NON VERBAL.WITH VENT DEPENDENT,TOLERATING WELL.ON TELE HR IS 120 WITH SINUS TACHYCARDIA.NO SOB AND ACUTE DISTRESS NOTED.SWELLING NOTED ON NECK AREA, AND HEAD. MIDLINE IS ON RIGHT UPPER ARM,SITE IS CLEAN,DRY AND INTACT.SAFETY IS MAINTAINED AT ALL TIMES.BED IS IN LOW POSITION AND LOCKED.CALL LIGHT IS WITHIN REACH.WILL CONTINUE TO MONITOR THE PT CLOSELY.
--- NOTE | 2018-09-15 07:00 | NUR ---
RN NOTES RECEIVED PT ON BED, OBTUNDED,NON VERBAL. VENT/TRACH DEPENDENT, TOLERATING CURRENT VENT SETTING WELL, ON TELE ST HR IN 110'S, SWELLING NOTED ON NECK AREA AND HEAD. R UPPER ARM MIDLINE SITE CLEAN, DRY AND INTACT WITH TPN AT 60CC/HR RUNNING , COLOSTOMY INTACT, SR UP x3, CALL LIGHT WITHIN EASY REACH, BED LOCKED AND IN LOWEST POSITION, SAFETY IS MAINTAINED AT ALL TIMES.WILL CONTINUE TO MONITOR THE PT CLOSELY.
[2018-09-15 07:32] LABS: CALCIUM, SERUM 8.3 mg/dL (8.5-10.1); CREATININE 0.7 mg/dL (0.6-1.3); MAGNESIUM 1.9 mg/dL (1.8-2.4); PHOSPHORUS 1.8 mg/dL (2.5-4.9); POTASSIUM 3.6 mmol/L (3.5-5.1)
[2018-09-15 08:00] VITALS: BP 121/83
[2018-09-15] MEDS: PANTOPRAZOLE 40 MG VIAL IV SCH (08:08)
[2018-09-15] MEDS: FAMOTIDINE/PF INJ 20 MG/2 ML VIAL IV SCH (08:08)
[2018-09-15] MEDS: TOBRAMYCIN 80 MG/2 ML VIAL INH SCH ×2 (08:57→21:15)
[2018-09-15] MEDS: POTASSIUM PHOSPHATE MM 7.5 MMOL in IV D5W 100 ML IV SCH ×2 (11:54→14:56)
[2018-09-15 12:00] VITALS: BP 115/76
--- NOTE | 2018-09-15 12:00 | NUR ---
RN NOTES VSS STABLE , CONTINUE TO MONITOR .
[2018-09-15] MEDS ORDERED: TPN BAG #9 IV PRN ×7 (12:30)
[2018-09-15] MEDS ORDERED: TPN BAG #10 IV PRN ×5 (12:30)
[2018-09-15 12:54] LABS: BASOPHILS % (AUTO) 0.2 % (0.0-2.0); EOSINOPHILS % (AUTO) 0.6 % (0.0-6.0); HEMATOCRIT 34 % (39-51); HEMOGLOBIN 10.6 g/dL (13.5-17.5); LYMPHOCYTES # (AUTO) 0.7 /CMM (0.8-4.8); MEAN CORPUSCULAR HGB CONC 31 g/dl (31.0-36.0); MEAN CORPUSCULAR VOLUME 86 fL (80-96); MONOCYTES # (AUTO) 1.2 /CMM (0.1-1.30); MONOCYTES % (AUTO) 12.6 % (2.0-12.0); NEUTROPHILS # (AUTO) 7.9 /CMM (1.8-8.9); NEUTROPHILS % (AUTO) 79.6 % (43.0-81.0); RED BLOOD CELL COUNT(AUTO) 3.97 MIL/uL (4.5-6.0); WHITE BLOOD COUNT (AUTO) 9.9 K/uL (4.3-11.0)
[2018-09-15 12:59] LABS: PLATELET COUNT (AUTO) 30 /CMM (150-450)
[2018-09-15 13:10] LABS: LYMPHOCYTES % (MANUAL) 5 % (16-48); MONOCYTES % (MANUAL) 8 % (0-11.0); NEUTROPHILS % (MANUAL) 87 (42-76)
[2018-09-15] MEDS: FLUCONAZOLE IN NS 100 MG in PREMIX 1 EA IV SCH ×4 (13:19→17:15)
[2018-09-15 16:00] VITALS: BP 125/86
--- NOTE | 2018-09-15 18:25 | NUR ---
RN NOTES NO SIGNIFICANT CHANGES NOTED ON THIS SHIFT , WILL ENDORSE TO STRIP POLISHER NURSE FOR CONTINUITY OF CARE ,
[2018-09-15 20:00] VITALS: BP 109/56
--- NOTE | 2018-09-15 20:09 | NUR ---
HEAD GREENSKEEPER INITIAL NOTES RECEIVED PT LYING ON BED.NOTED PT IS OBTUNDED,NON VERBAL.WITH VENT DEPENDENT,TOLERATING WELL.ON TELE HR IS 133 WITH SINUS TACHYCARDIA.NO SOB AND ACUTE DISTRESS NOTED.SWELLING NOTED ON NECK AREA, AND HEAD. MIDLINE IS ON RIGHT UPPER ARM,SITE IS CLEAN,DRY AND INTACT. TPN RUNNING SAFETY IS MAINTAINED AT ALL TIMES.BED IS IN LOW POSITION AND LOCKED.CALL LIGHT IS WITHIN REACH.WILL CONTINUE TO MONITOR THE PT CLOSELY.
[2018-09-16] VITALS: BP 115/68
[2018-09-16 04:00] VITALS: BP 125/80
[2018-09-16] MEDS: VANCOMYCIN FOR RECTAL ENEMA 500 MG RC SCH ×3 (04:56→21:42)
[2018-09-16] MEDS: METRONIDAZOLE 500MG/ NS 100ML 500 MG in PREMIX 1 EA IV SCH ×3 (05:28→21:42)
[2018-09-16] MEDS: BLOOD SUGAR DIAGNOSTIC 1 EACH STRIP IN SCH ×3 (05:41→17:48)
[2018-09-16] MEDS: INSULIN REGULAR, HUMAN 100 UNIT/ML 3 ML VIAL SQ PRN ×3 (05:44→18:01)
[2018-09-16 07:21] LABS: BASOPHILS % (AUTO) 0.1 % (0.0-2.0); EOSINOPHILS % (AUTO) 0.9 % (0.0-6.0); HEMATOCRIT 31 % (39-51); HEMOGLOBIN 9.9 g/dL (13.5-17.5); LYMPHOCYTES # (AUTO) 0.7 /CMM (0.8-4.8); LYMPHOCYTES % (AUTO) 7.6 % (20.0-44.0); MEAN CORPUSCULAR HGB CONC 32 g/dl (31.0-36.0); MEAN CORPUSCULAR VOLUME 85 fL (80-96); NEUTROPHILS # (AUTO) 7.3 /CMM (1.8-8.9); NEUTROPHILS % (AUTO) 80.4 % (43.0-81.0); RED BLOOD CELL COUNT(AUTO) 3.67 MIL/uL (4.5-6.0)
[2018-09-16 07:29] LABS: PLATELET COUNT (AUTO) 46 /CMM (150-450)
[2018-09-16 07:46] LABS: CALCIUM, SERUM 8.2 mg/dL (8.5-10.1); CREATININE 0.7 mg/dL (0.6-1.3); MAGNESIUM 1.9 mg/dL (1.8-2.4); PHOSPHORUS 2.1 mg/dL (2.5-4.9); POTASSIUM 3.7 mmol/L (3.5-5.1)
[2018-09-16 08:00] VITALS: BP 111/80
[2018-09-16] MEDS: PANTOPRAZOLE 40 MG VIAL IV SCH (08:11)
[2018-09-16] MEDS: FAMOTIDINE/PF INJ 20 MG/2 ML VIAL IV SCH (08:11)
[2018-09-16] MEDS: TOBRAMYCIN 80 MG/2 ML VIAL INH SCH ×2 (08:23→21:41)
[2018-09-16 09:17] LABS: BAND % (MANUAL) 13 % (0.0-5.0); LYMPHOCYTES % (MANUAL) 3 % (16-48); MONOCYTES % (MANUAL) 10 % (0-11.0); NEUTROPHILS % (MANUAL) 74 (42-76)
[2018-09-16 12:00] VITALS: BP 106/66
[2018-09-16 16:00] VITALS: BP 123/95
[2018-09-16] MEDS ORDERED: Z GUARD REMEDY 2 OZ OINT TP PRN (16:30)
[2018-09-16] MEDS: FLUCONAZOLE IN NS 100 MG in PREMIX 1 EA IV SCH ×2 (17:48)
[2018-09-16 18:26] LABS: ABG BASE EXCESS 2.3 mmol/L; ABG OXYGEN SATURATION 91.9 % (92.0-98.5); ABG PCO2 73.7 mmHg (35.0-45.0); ABG PH 7.245 (7.350-7.450); ABG PO2 75.9 mmHg (75.0-100.0); AaDO2 161.1 mmHg; COHb 1.1 % (0.5-1.5); MetHb 0.2 % (0.0-1.5); O2Hb 90.7 % (94.0-97.0); PEEP,BG 5 cm H2O; SITE, ABG Right Radial; VT, ABG 500 mL
--- NOTE | 2018-09-16 19:00 | NUR ---
RN NOTE AROUND 1800 PT BECAME SHORT OF BREATH AND OXYGEN SATURATION 93-95%. TACHYCARDIC, HR 125BPM, STAT ABG ORDERED AND DRAWN. WATER FILTRATION TECHNICIAN ARGENTINA VIZCAINO AND DR. ROSALES NOTIFIED ABOUT CRITICAL LEVELS ON BLOOD GASES, HE ORDERED VENT SETTING CHANGES: AC OF RATE 22 BREATHS PER MIN AND TIDAL VOLUME 550 ML. RT ADJUSTED THE SETTINGS [facility]. PT STABLE. WILL ENDORSE TO SCIENTIFIC ADVISOR.
[2018-09-16 20:00] VITALS: BP 106/70
[2018-09-17] VITALS: BP 100/62
[2018-09-17] MEDS: INSULIN REGULAR, HUMAN 100 UNIT/ML 3 ML VIAL SQ PRN ×2 (00:16→06:23)
[2018-09-17] MEDS: BLOOD SUGAR DIAGNOSTIC 1 EACH STRIP IN SCH ×4 (00:17→17:57)
[2018-09-17 04:00] VITALS: BP 100/56
[2018-09-17] MEDS ORDERED: TPN BAG #11 IV PRN ×7 (05:00)
[2018-09-17] MEDS: VANCOMYCIN FOR RECTAL ENEMA 500 MG RC SCH ×3 (05:18→21:14)
[2018-09-17] MEDS: METRONIDAZOLE 500MG/ NS 100ML 500 MG in PREMIX 1 EA IV SCH ×3 (05:18→21:14)
[2018-09-17] MEDS: ONDANSETRON HCL/PF 4 MG/2 ML VIAL IVP PRN (06:46)
[2018-09-17 06:56] LABS: BASOPHILS % (AUTO) 0.1 % (0.0-2.0); EOSINOPHILS % (AUTO) 1.8 % (0.0-6.0); HEMATOCRIT 30 % (39-51); HEMOGLOBIN 9.6 g/dL (13.5-17.5); LYMPHOCYTES # (AUTO) 0.7 /CMM (0.8-4.8); LYMPHOCYTES % (AUTO) 10.2 % (20.0-44.0); MEAN CORPUSCULAR HGB CONC 32 g/dl (31.0-36.0); MEAN CORPUSCULAR VOLUME 83 fL (80-96); MONOCYTES # (AUTO) 0.6 /CMM (0.1-1.30); MONOCYTES % (AUTO) 8.5 % (2.0-12.0); NEUTROPHILS # (AUTO) 5.5 /CMM (1.8-8.9); NEUTROPHILS % (AUTO) 79.4 % (43.0-81.0); PLATELET COUNT (AUTO) 57 /CMM (150-450); RED BLOOD CELL COUNT(AUTO) 3.62 MIL/uL (4.5-6.0)
[2018-09-17 07:08] LABS: CREATININE 0.6 mg/dL (0.6-1.3); MAGNESIUM 1.9 mg/dL (1.8-2.4); PHOSPHORUS 2.3 mg/dL (2.5-4.9); POTASSIUM 3.3 mmol/L (3.5-5.1)
--- NOTE | 2018-09-17 07:30 | NUR ---
RN NOTES: RECEIVED PATIENT IN BED, WITH SPONTANEOUS EYE OPENING. NON VERBAL. TRACH TO VENT. TRACH TUBE IN PLACE AT MIDLINE. TOLERATING CURRENT VENT SETTING WITH O2 SATURATION 98%. SUCTIONED FOR AIRWAY PATENCY, SECRETION NOTED TO BE WHITISH TO YELLOWISH, THIN IN CONSISTENCY. SINUS TACH ON THE MONITOR WITH HR AT 109 AT THIS TIME. BILATERAL HAND NOTED WITH SWELLING . (R) UPPER ARM MIDLINE IN PLACE AND FLUSHING WELL. DRESSING C/D/I. TPN INFUSING WELL AT 60CC/HR. COLOSTOMY NOTED WITH LIQUID STOOL. HOB KEPT ELEVATED. KEPT NPO. SAFETY MEASURES OBSERVED AND MAINTAINED. SR UP X2, BED ALARMED ON. BED LOW AND LOCKED POSITION. CALL LIGHT WITHIN REACH. WILL IMPLEMENT ISOLATION PRECAUTIONS AT ALL TIME. WILL CONTINUE TO MONITOR PATIENT AND ANTICIPATE NEEDS
[2018-09-17 08:00] VITALS: BP_SYST 131; BP_SYST 75; BP_DIAS 70
[2018-09-17] MEDS: FAMOTIDINE/PF INJ 20 MG/2 ML VIAL IV SCH (08:41)
[2018-09-17] MEDS: PANTOPRAZOLE 40 MG VIAL IV SCH (08:41)
[2018-09-17 10:09] LABS: BAND % (MANUAL) 6 % (0.0-5.0); LYMPHOCYTES % (MANUAL) 9 % (16-48); MONOCYTES % (MANUAL) 3 % (0-11.0); NEUTROPHILS % (MANUAL) 82 (42-76)
[2018-09-17] MEDS: TOBRAMYCIN 80 MG/2 ML VIAL INH SCH ×2 (10:13→21:01)
--- NOTE | 2018-09-17 10:53 | NUR ---
RT RECD PT TRACHED INTACT AND SECURED ON MECH VENT TRISTAN ORDERED SETTINGS ALARMS ON AND AUDIBLE BAG AND MASK AT HOB VENT PLUGGED IN RED OUTLET. SX THICK YELLOW MOD AMOUNT OF SECRETIONS NO RESP DISTRESS ATT WILL CONT TO MONITOR
[2018-09-17 11:48] LABS: ABG BASE EXCESS 5.9 mmol/L; ABG OXYGEN SATURATION 97.1 % (92.0-98.5); ABG PCO2 37.4 mmHg (35.0-45.0); ABG PH 7.511 (7.350-7.450); ABG PO2 102.3 mmHg (75.0-100.0); COHb 0.5 % (0.5-1.5); MetHb 0.2 % (0.0-1.5); O2Hb 96.4 % (94.0-97.0); SITE, ABG Right Radial; VENT MODE, BG AC 22 550 +5 45%
[2018-09-17 12:00] VITALS: BP 123/68
[2018-09-17] MEDS ORDERED: TPN BAG #12 IV PRN ×5 (14:30)
[2018-09-17 16:00] VITALS: BP 109/76
--- NOTE | 2018-09-17 16:37 | NUR ---
RN NOTES INFORMED DR ROSALES ON CURRENT ABG RESULT, OBTAINED ORDER TO PUT BACK PATIENT O TV OF 450. RT INFORMED
[2018-09-17] MEDS: FLUCONAZOLE IN NS 100 MG in PREMIX 1 EA IV SCH ×2 (17:46)
--- NOTE | 2018-09-17 18:30 | NUR ---
RN NOTES PATIENT NOTED WITH CYANOSIS, PATIENT DISCONNECTED FROM THE VENT, BAGGED TEMPORARILY, SUCTIONED AND PLACED BACK TO VENT. RT AT BEDSIDE. PATIENT KEPT MONITORED. DR ROSALES INFORMED AND OBTAINED ORDER TO PLACE BACK PATIENT TO TV OF 55O THEN OBTAIN CHEST XRAY AND ANOTHER SET OF ABG IF DOES NOT IMPROVE
--- NOTE | 2018-09-17 18:38 | NUR ---
RT NOTE: RT CALLED STAT. UPON ARRIVAL PATIENT WAS ON VENT SETTINGS:AC 22, QW=576, FD88=714%, PEEP+5. NURSE STATES THAT SHE FOUND PATIENT DISCONNECTED AND CYANOTIC. PATIENT WAS ASSISTED WITH AMBU BAG AND ONCE PATIENT WAS STABLE HE WAS PLACED BACK ON VENT WITH 100% FI02 BY NURSE. AT THIS TIME PATIENT'S VW56=875% AND FI02 WAS TITRATED DOWN TO PRIOR SETTING OF 45%. CHARGE NURSE(SOON) AWARE. WILL ENDORSE TO INCOMING RT.
[2018-09-17] MEDS ORDERED: IV NS 0.9% 250 ML IV ONE (19:30)
--- NOTE | 2018-09-17 19:30 | NUR ---
RN NOTES ENDORSED PATIENT FOR CONTINUITY OF CARE. NO CHANGES THROUGHOUT THE SHIFT. NOT ON ANY FORM OF DISTRESS AT THIS TIME. ENDORSE EPISODE OF DESATURATION ANDALL CHANGES MADE. ALL NEEDS ANTICIPATED AND MET. CALL LIGHT WITHIN REACH. SAFETY PRECAUTIONS IN PLACE AT ALL TIMES. ISOLATION PRECAUTIONS IMPLEMENTED ALWAYS
[2018-09-17 20:00] VITALS: BP 134/94
--- NOTE | 2018-09-17 20:00 | NUR ---
RN INITIAL NOTES, RECEIVED PATIENT IN BED WITH EYE OPENING, A/O TO SELF, NON VERBAL ON MECHANICAL VENTILATOR TOLERATING VENT SETTING WELL A THIS TIME, WITH O2 SATURATION 100%, SUCTIONED PROVIDED AT THIS TIME, SINUS TACH ON THE TELE MONITOR WITH HR AT 110 AT THIS TIME, RIGHT UPPER ARM MIDLINE IN PLACE PATENT AND INTACT, DRESSING CHANGED AT THIS TIME, TPN INFUSING WELL AT 60CC/HR, AND PATIENT TOLERATED WELL, COLOSTOMY NOTED WITH LIQUID BROWNISH TRANSPARENT STOOL, HOB ELEVATED AT AL TIMES FOR ASPIRATION PRECAUTIONS, KEPT NPO, SAFETY MEASURES PLACED, SR UP X2, BED LOW AND LOCKED POSITION, BED ALARMED ON, CALL LIGHT WITHIN REACH, CONTINUE IN ISOLATION PRECAUTIONS, WILL CONTINUE TO MONITOR PATIENT CLOSELY.
[2018-09-18] VITALS (7 sets, daily range): BP systolic 122–149; BP diastolic 80–100
[2018-09-18] MEDS: BLOOD SUGAR DIAGNOSTIC 1 EACH STRIP IN SCH ×4 (00:08→17:31)
[2018-09-18] MEDS: INSULIN REGULAR, HUMAN 100 UNIT/ML 3 ML VIAL SQ PRN ×4 (00:11→17:33)
[2018-09-18] MEDS: VANCOMYCIN FOR RECTAL ENEMA 500 MG RC SCH ×3 (04:30→21:27)
--- NOTE | 2018-09-18 05:28 | NUR ---
RT Pt trach on [facility] vent settings t/o the night. pt appears comfortable on settings w/ no resp distress noted. Trach secure and patent. sx prn. Addendum: 09/18/18 at 0529 by MELISSA LAW RT Amended: Links added.
[2018-09-18] MEDS: METRONIDAZOLE 500MG/ NS 100ML 500 MG in PREMIX 1 EA IV SCH ×3 (05:32→21:27)
--- NOTE | 2018-09-18 06:24 | NUR ---
RN CLOSING NOTES, PATIENT IN BED WITH EYE OPENING, A/O TO SELF, NON VERBAL ON MECHANICAL VENTILATOR TOLERATING VENT SETTING WELL A THIS TIME, WITH O2 SATURATION 100%, SUCTIONED PROVIDED AT THIS TIME, SINUS TACH ON THE TELE MONITOR WITH HR AT 110 AT THIS TIME, RIGHT UPPER ARM MIDLINE IN PLACE PATENT AND INTACT, TPN INFUSING WELL AT 60CC/HR, AND PATIENT TOLERATED WELL, COLOSTOMY IN PLACED, VANCOMYCIN IRRIGATION SOLUTION ADMINISTERED FOR CDIFF ORDERED, HOB ELEVATED AT AL TIMES FOR ASPIRATION PRECAUTIONS, SAFETY MEASURES PLACED, SR UP X2, BED LOW AND LOCKED POSITION, BED ALARMED ON, CALL LIGHT WITHIN REACH, CONTINUE IN ISOLATION PRECAUTIONS, NO SIGNIFICANT CHANGE IN CONDITION DURING THE NIGHT.
[2018-09-18 07:06] LABS: BASOPHILS % (AUTO) 0.3 % (0.0-2.0); HEMATOCRIT 32 % (39-51); HEMOGLOBIN 10.4 g/dL (13.5-17.5); LYMPHOCYTES # (AUTO) 0.7 /CMM (0.8-4.8); LYMPHOCYTES % (AUTO) 7.2 % (20.0-44.0); MEAN CORPUSCULAR HGB CONC 33 g/dl (31.0-36.0); MEAN CORPUSCULAR VOLUME 82 fL (80-96); MONOCYTES # (AUTO) 0.6 /CMM (0.1-1.30); MONOCYTES % (AUTO) 6.2 % (2.0-12.0); NEUTROPHILS # (AUTO) 8.7 /CMM (1.8-8.9); NEUTROPHILS % (AUTO) 85.3 % (43.0-81.0); PLATELET COUNT (AUTO) 87 /CMM (150-450); RED BLOOD CELL COUNT(AUTO) 3.87 MIL/uL (4.5-6.0); WHITE BLOOD COUNT (AUTO) 10.2 K/uL (4.3-11.0)
[2018-09-18 07:33] LABS: CALCIUM, SERUM 8.2 mg/dL (8.5-10.1); CREATININE 0.6 mg/dL (0.6-1.3); MAGNESIUM 2.2 mg/dL (1.8-2.4); PHOSPHORUS 2.4 mg/dL (2.5-4.9); POTASSIUM 3.8 mmol/L (3.5-5.1)
--- NOTE | 2018-09-18 08:06 | NUR ---
RN NOTES: RECEIVED PATIENT IN BED, WITH SPONTANEOUS EYE OPENING. NON VERBAL. TRACH TO VENT. TRACH TUBE IN PLACE AT MIDLINE. TOLERATING CURRENT VENT SETTING WITH O2 SATURATION 98%. SUCTIONED FOR AIRWAY PATENCY, SECRETION NOTED TO BE WHITISH TO YELLOWISH, THIN IN CONSISTENCY. SINUS TACH ON THE MONITOR WITH HR AT 109 AT THIS TIME. NOTED WITH FACIAL SWELLING AND BILATERAL UPPER EXTREMITY NON PITTING EDEMA. (R) UPPER ARM MIDLINE IN PLACE AND FLUSHING WELL. DRESSING C/D/I. TPN INFUSING WELL AT 60CC/HR. COLOSTOMY NOTED WITH LIQUID STOOL. HOB KEPT ELEVATED. KEPT NPO. SAFETY MEASURES OBSERVED AND MAINTAINED. SR UP X2, BED ALARMED ON. BED LOW AND LOCKED POSITION. CALL LIGHT WITHIN REACH. WILL IMPLEMENT ISOLATION PRECAUTIONS AT ALL TIME. WILL CONTINUE TO MONITOR PATIENT AND ANTICIPATE NEEDS
[2018-09-18] MEDS: PANTOPRAZOLE 40 MG VIAL IV SCH (08:17)
[2018-09-18] MEDS: FAMOTIDINE/PF INJ 20 MG/2 ML VIAL IV SCH (08:17)
[2018-09-18] MEDS: TOBRAMYCIN 80 MG/2 ML VIAL INH SCH ×2 (11:06→22:14)
[2018-09-18] MEDS ORDERED: TPN BAG #13 IV PRN ×7 (13:30)
[2018-09-18] MEDS: FLUCONAZOLE IN NS 100 MG in PREMIX 1 EA IV SCH ×2 (17:08)
--- NOTE | 2018-09-18 18:18 | NUR ---
RT END OF THE SHIFT; PT 22 Y OLD MALE AWAKE SOME WHAT RESPONSIVE REMAIN TRACH'D AMARIS XLT # 8 ON VENT WITH NOTED SETTINGS, ALARMS ARE SET AND FUNCTIONAL. NO CHANGES T/O DAY. EQUAL CHEST RISE NOTED PT. SUX'D FOR MOD. AMT WHITE/YELLOW SECRETIONS, AMBU BAG REMAIN AT THE BEDSIDE. HME CHANGED , VENT PLUGGED INTO RED OUTLET, AND CONTINUE TO MONITOR AND, REPORT WILL PASS TO PM SHIFT. Addendum: 09/18/18 at 1819 by ABHI VICTOR RT Amended: Links added.
--- NOTE | 2018-09-18 19:27 | NUR ---
RN NOTES ENDORSED PATIENT FOR CONTINUITY OF CARE. NO CHANGES THROUGHOUT THE SHIFT. NOT ON ANY FORM OF DISTRESS AT THIS TIME. ENDORSE EPISODE OF DESATURATION AND ALL CHANGES MADE. ALL NEEDS ANTICIPATED AND MET. CALL LIGHT WITHIN REACH. SAFETY PRECAUTIONS IN PLACE AT ALL TIMES. ISOLATION PRECAUTIONS IMPLEMENTED ALWAYS
--- NOTE | 2018-09-18 19:40 | NUR ---
RT PT RECEIVED TRACHED ON [facility] VENT WITH CHARTED SETTINGS. NO RESP DISTRESS/SOB NOTED AT THIS TIME. ALARMS ARE SET AND AUDIBLE. SUCTIONED FOR MOD, AMT WHITE/YELLOW SECRETIONS. AMBU BAG AT THE BEDSIDE. VENT PLUGGED INTO RED OUTLET. WILL CONTINUE TO MONITOR. Addendum: 09/18/18 at 2229 by SUMMER ABDULLAHI RT Amended: Links added.
[2018-09-19] VITALS (7 sets, daily range): BP systolic 109–147; BP diastolic 25–96
[2018-09-19] MEDS: BLOOD SUGAR DIAGNOSTIC 1 EACH STRIP IN SCH ×4 (01:11→18:32)
[2018-09-19] MEDS: INSULIN REGULAR, HUMAN 100 UNIT/ML 3 ML VIAL SQ PRN ×3 (01:19→12:29)
[2018-09-19] MEDS: VANCOMYCIN FOR RECTAL ENEMA 500 MG RC SCH ×4 (05:15→21:26)
[2018-09-19] MEDS: METRONIDAZOLE 500MG/ NS 100ML 500 MG in PREMIX 1 EA IV SCH ×3 (05:16→21:26)
[2018-09-19] MEDS: LORAZEPAM INJ 2 MG/ML VIAL IV PRN (05:59)
[2018-09-19 07:00] LABS: BASOPHILS % (AUTO) 0.2 % (0.0-2.0); EOSINOPHILS % (AUTO) 0.5 % (0.0-6.0); HEMATOCRIT 30 % (39-51); HEMOGLOBIN 9.4 g/dL (13.5-17.5); LYMPHOCYTES # (AUTO) 0.7 /CMM (0.8-4.8); LYMPHOCYTES % (AUTO) 5.9 % (20.0-44.0); MEAN CORPUSCULAR HGB CONC 31 g/dl (31.0-36.0); MEAN CORPUSCULAR VOLUME 84 fL (80-96); MONOCYTES # (AUTO) 0.8 /CMM (0.1-1.30); MONOCYTES % (AUTO) 6.8 % (2.0-12.0); NEUTROPHILS # (AUTO) 10.6 /CMM (1.8-8.9); NEUTROPHILS % (AUTO) 86.6 % (43.0-81.0); PLATELET COUNT (AUTO) 122 /CMM (150-450); RED BLOOD CELL COUNT(AUTO) 3.59 MIL/uL (4.5-6.0); WHITE BLOOD COUNT (AUTO) 12.2 K/uL (4.3-11.0)
[2018-09-19 07:10] LABS: CALCIUM, SERUM 7.7 mg/dL (8.5-10.1); CREATININE 1.2 mg/dL (0.6-1.3); MAGNESIUM 2.3 mg/dL (1.8-2.4); PHOSPHORUS 3.7 mg/dL (2.5-4.9); POTASSIUM 3.8 mmol/L (3.5-5.1)
--- NOTE | 2018-09-19 07:15 | NUR ---
COMMERCIAL LOAN CLOSER OPENING NOTES, RECEIVED PATIENT IN BED ASLEEP WITH SPONTANEOUS EYE OPENING, A/O X1 NON VERBAL ON MECHANICAL VENTILATOR TOLERATING VENT SETTING WELL A THIS TIME, WITH O2 SATURATION 100% SINUS TACH ON THE TELE MONITOR WITH HR AT 100'SAT RIGHT UPPER ARM MIDLINE IN PLACE PATENT AND INTACT TPN INFUSING WELL AT 60CC/HR, AND PATIENT TOLERATED WELL COLOSTOMY NOTED WITH LIQUID BROWNISH TRANSPARENT STOOL, HOB ELEVATED AT AL TIMES FOR ASPIRATION PRECAUTIONS AND SAFETY MEASURES PLACED, SR UP X2, BED LOW AND LOCKED POSITION, BED ALARMED ON, CALL LIGHT WITHIN REACH, WILL CONT TO MONITOR
[2018-09-19] MEDS: TOBRAMYCIN 80 MG/2 ML VIAL INH SCH ×2 (08:00→21:12)
[2018-09-19] MEDS: PANTOPRAZOLE 40 MG VIAL IV SCH (08:00)
--- NOTE | 2018-09-19 08:34 | NUR ---
RT PT REC'D TRACHED ON [facility] VENT ON CHARTED SETTINGS. NO RESP DISTRESS/SOB NOTED AT THIS TIME. ALARMS ARE SET AND AUDIBLE. TRACH TUBE PATENT, SECURED,IN PLACE. SUCTIONED FOR SMALL, AMT WHITE/YELLOW SECRETIONS. AMBU BAG AT THE BEDSIDE. VENT PLUGGED INTO RED OUTLET. WILL CONTINUE TO MONITOR. Addendum: 09/19/18 at 0836 by AVA BOWMAN RT Amended: Links added.
--- NOTE | 2018-09-19 08:45 | NUR ---
FLUX TUBE ATTENDANT NOTES PATIENT NPO WITH TPN RUNNING. NOTICED YELLOW BILE COLOR IN MOUTH AND AROUND TRACH SITE. WILL ADMINISTER ZOFRAN
[2018-09-19] MEDS: FAMOTIDINE/PF INJ 20 MG/2 ML VIAL IV SCH (08:46)
[2018-09-19] MEDS: ONDANSETRON HCL/PF 4 MG/2 ML VIAL IVP PRN ×2 (08:46→17:10)
[2018-09-19] MEDS ORDERED: TPN BAG #15 IV PRN ×7 (12:00)
[2018-09-19] MEDS ORDERED: TPN BAG #14 IV PRN ×17 (12:00→12:05)
--- NOTE | 2018-09-19 14:30 | NUR ---
RM TELE NOTES UNABLE TO ADMINISTER VANCO. TIP OF TUBING UNABLE TO ADVANCE
--- NOTE | 2018-09-19 16:23 | NUR ---
GLOVE CUFFER NOTES PATIENT CONT TO HAVE LARGE AMOUNTS OF BILE OUT OF MOUTH AND TRACH. KATHIE MORRIS AWARE CONSULT FOR GI
--- NOTE | 2018-09-19 16:27 | NUR ---
SHINGLE WEAVER NOTES 1300 VANCO ADMINISTERED VIA OSTOMY SITE AFTER CONFIRMATION 500 ML
[2018-09-19] MEDS: FLUCONAZOLE IN NS 100 MG in PREMIX 1 EA IV SCH ×2 (18:33)
--- NOTE | 2018-09-19 18:50 | NUR ---
MAJOR ACCOUNT MANAGER NOTES ORDER FOR NG TUBE . 14 SWEDISH IN (R) NARES BILE ON RETURN AWAITING CXR FOR PLACEMENT WILL ENDORSE TO NOC
--- NOTE | 2018-09-19 19:20 | NUR ---
PLANNING AND ANALYSIS MANAGER CLOSING NOTES, BEDSIDE REPORT GIVEN A/O X2 NON VERBAL ON MECHANICAL VENTILATOR TOLERATING VENT SETTING WELL A THIS TIME, WITH O2 SATURATION 100% SINUS TACH ON THE TELE MONITOR WITH HR AT 100'SAT RIGHT UPPER ARM MIDLINE IN PLACE PATENT AND INTACT TPN INFUSING WELL AT 59 CC/HR, AND PATIENT TOLERATED WELL COLOSTOMY EMPTY YELLOW BILE NOTED AT BEGINNING OF SHIFT OUT OF MOUTH AND TRACH. CT OF ABDOMEN DONE AND ORDERS FOR NGT PLACED # 14 NIUEAN ATTACHED TO LOW INT SUCTION DRAINING YELLOW BILE. , HOB ELEVATED AT AL TIMES FOR ASPIRATION PRECAUTIONS AND SAFETY MEASURES PLACED,BILATERAL WRIST RESTRAINTS FOR PULLING AT TUBED SR UP X2, BED LOW AND LOCKED POSITION, BED ALARMED ON, CALL LIGHT WITHIN REACH,
--- NOTE | 2018-09-19 20:00 | NUR ---
TELE/RN NOTES: RECEIVED PT.'S REPORT FROM LANDON MINOR. ALERT/ORIENTED X 2. ABLE TO FOLLOW SIMPLE COMMANDS. ON MECH. VENTILATOR TOLERATING SETTINGS WELL. W/ RT. UPPER ARM MIDLINE W/ TPN AT 59.825 GOING ON. TOLERATING WELL. HAS A NGT TO RT. NARES TO LOW INTERMITTENT SUCTION W/ GREENISH COLOR DRAINAGE. W/ SOFT WRIST RESTRAINTS ON. INCONTINENT OF BLADDER. HAS A COLOSTOMY W/ RED TINGED URINE. ON CONTACT PRECAUTION FOR C-DIFF. PT. IS ON NPO STATUS. WILL CONTINUE TO MONITOR. CALL LIGHT W/ REACH.
[2018-09-20] VITALS: BP 130/81
[2018-09-20] MEDS: INSULIN REGULAR, HUMAN 100 UNIT/ML 3 ML VIAL SQ PRN ×3 (01:25→12:31)
[2018-09-20 04:00] VITALS: BP 128/85
[2018-09-20] MEDS: VANCOMYCIN FOR RECTAL ENEMA 500 MG RC SCH ×3 (04:12→13:10)
[2018-09-20] MEDS: BLOOD SUGAR DIAGNOSTIC 1 EACH STRIP IN SCH ×4 (05:36→17:57)
[2018-09-20] MEDS: METRONIDAZOLE 500MG/ NS 100ML 500 MG in PREMIX 1 EA IV SCH ×3 (05:39→21:27)
[2018-09-20 06:44] LABS: BASOPHILS % (AUTO) 0.1 % (0.0-2.0); EOSINOPHILS % (AUTO) 0.2 % (0.0-6.0); HEMATOCRIT 30 % (39-51); HEMOGLOBIN 9.4 g/dL (13.5-17.5); LYMPHOCYTES # (AUTO) 0.3 /CMM (0.8-4.8); LYMPHOCYTES % (AUTO) 2.3 % (20.0-44.0); MEAN CORPUSCULAR HGB CONC 31 g/dl (31.0-36.0); MEAN CORPUSCULAR VOLUME 84 fL (80-96); MONOCYTES # (AUTO) 0.6 /CMM (0.1-1.30); MONOCYTES % (AUTO) 4.6 % (2.0-12.0); NEUTROPHILS # (AUTO) 11.3 /CMM (1.8-8.9); NEUTROPHILS % (AUTO) 92.8 % (43.0-81.0); PLATELET COUNT (AUTO) 129 /CMM (150-450); RED BLOOD CELL COUNT(AUTO) 3.59 MIL/uL (4.5-6.0); WHITE BLOOD COUNT (AUTO) 12.2 K/uL (4.3-11.0)
[2018-09-20 06:47] LABS: CALCIUM, SERUM 7.6 mg/dL (8.5-10.1); CREATININE 1.3 mg/dL (0.6-1.3); MAGNESIUM 2.3 mg/dL (1.8-2.4); PHOSPHORUS 3.8 mg/dL (2.5-4.9); POTASSIUM 3.7 mmol/L (3.5-5.1)
--- NOTE | 2018-09-20 07:00 | NUR ---
TELE/RN NOTES: REPORT GIVEN TO NEXT SHIFT NURSE FOR GEORGE.
--- NOTE | 2018-09-20 07:12 | NUR ---
LEARNING SUPPORT ASSISTANT OPENING NOTES, BEDSIDE REPORT GIVEN A/O X2 NON VERBAL ON MECHANICAL VENTILATOR TOLERATING VENT SETTING WELL A THIS TIME, WITH O2 SATURATION 100% SINUS TACH ON THE TELE MONITOR WITH HR AT 100'SAT RIGHT UPPER ARM MIDLINE IN PLACE PATENT AND INTACT TPN INFUSING WELL AT 59 CC/HR, AND PATIENT TOLERATED WELL COLOSTOMY CLEAN WITH NO DRAINAGE NGT IN (L) NARES # 14 TELUGU ATTACHED TO LOW INT SUCTION DRAINING YELLOW BILE. , HOB ELEVATED AT AL TIMES FOR ASPIRATION PRECAUTIONS AND SAFETY MEASURES PLACED,BILATERAL WRIST RESTRAINTS FOR PULLING AT TUBED SR UP X2, BED LOW AND LOCKED POSITION, BED ALARMED ON, CALL LIGHT WITHIN REACH,
[2018-09-20] MEDS ORDERED: TPN BAG #16 IV PRN ×6 (07:30)
[2018-09-20] MEDS ORDERED: TPN BAG #17 IV PRN ×8 (07:30)
--- NOTE | 2018-09-20 07:33 | NUR ---
RT RECEIVED PT TRACH ON VENT WITH NOTED SETTINGS. GIS SOFTWARE DEVELOPER DONE AND TRACH IS SECURE. VENT ALARMS CHECKED AND AUDIBLE. VENT PLUGGED IN RED OUTLET. B/S ALESSANDRO RHONCHI, SX WITH MOD THK COLLINS SECRETIONS. AMBU BAG NOTED HOB. PT TOLERATING SETTINGS. NO SOB OR RESP DISTRESS NOTED HOB. WILL CONTINUE TO MONITOR T/O SHIFT.
[2018-09-20] MEDS: PANTOPRAZOLE 40 MG VIAL IV SCH (07:56)
[2018-09-20 08:00] VITALS: BP 113/75
[2018-09-20] MEDS: FAMOTIDINE/PF INJ 20 MG/2 ML VIAL IV SCH (09:02)
[2018-09-20] MEDS: LORAZEPAM INJ 2 MG/ML VIAL IV PRN (09:02)
[2018-09-20] MEDS: TOBRAMYCIN 80 MG/2 ML VIAL INH SCH ×2 (09:39→20:20)
[2018-09-20 12:00] VITALS: BP 108/76
[2018-09-20] MEDS ORDERED: FAT EMULSION 20% 500 ML in PREMIX 1 EA IV SCH (14:00)
--- NOTE | 2018-09-20 14:01 | NUR ---
CHIEF OF HARBOR PATROL NOTES UNABLE TO ADMINISTER VANCO. OBVIOUS OBSTRUCTION AT STOMA SITE. WILL INFORM
[2018-09-20 16:00] VITALS: BP 97/58
--- NOTE | 2018-09-20 16:38 | NUR ---
CAREER EDUCATION TEACHER NOTES RECTAL TUBE PLACED PER MD ORDER FOR DISTENTION
--- NOTE | 2018-09-20 16:47 | NUR ---
STOCK FITTER NOTES VERIFIED ORDERS ON PHONE WITH CHARGE MARCK. ORDER TO HAVE VANCO THROUGH NGT HOLD SUCTION FOR 1 HR. WILL HAVE PHARMACY RECONSTITUTE. D/T ILIOSTOMY SITE RED BLOODY AND UNABLE TO ADMINITER MORE THAN 100 ML.
[2018-09-20] MEDS ORDERED: VANCOMYCIN HCL 125 MG/2.5 ML ORAL.SUSP GT SCH (18:00)
[2018-09-20] MEDS: FLUCONAZOLE IN NS 100 MG in PREMIX 1 EA IV SCH ×2 (18:08)
--- NOTE | 2018-09-20 18:21 | NUR ---
CONSTRUCTION WORKER NOTES VANCO GIVEN VIA NGT INT SUCTION HELD
--- NOTE | 2018-09-20 19:30 | NUR ---
PUMPER HAND CLOSING NOTES, BEDSIDE REPORT GIVEN A/O X2 NON VERBAL ON MECHANICAL VENTILATOR TOLERATING VENT SETTING WELL A THIS TIME, WITH O2 SATURATION 100% SINUS TACH ON THE TELE MONITOR WITH HR AT 100'SAT RIGHT UPPER ARM MIDLINE IN PLACE PATENT AND INTACT TPN INFUSING WELL AT 60CC/HR AND LIPIDS @20ML/HR AND PATIENT TOLERATED WELL COLOSTOMY CLEAN WITH NO DRAINAGE NGT IN (L) NARES # 14 SRI LANKAN ATTACHED TO LOW INT SUCTION DRAINING YELLOW BILE [address] OUT[address] IN [address] WITH NO STOOL OR AIR PRESENT, HOB ELEVATED AT AL TIMES FOR ASPIRATION PRECAUTIONS AND SAFETY MEASURES PLACED,BILATERAL WRIST RESTRAINTS FOR PULLING AT TUBED SR UP X2, BED LOW AND LOCKED POSITION, BED ALARMED ON, CALL LIGHT WITHIN REACH,
[2018-09-20 20:00] VITALS: BP 110/75
--- NOTE | 2018-09-20 20:00 | NUR ---
TELE/RN NOTES: RECEIVED PT.'S REPORT FROM LANDON MINOR. ALERT/ORIENTED X 2. ON TELE MONITOR W/ ST. ABLE TO FOLLOW SIMPLE COMMANDS. [facility] VENTILATOR TOLERATING SETTINGS WELL. W/ RT. UPPER ARM MIDLINE W/ TPN # 15 AT 60 ML/HR. W/ LIPID GOING ON AT 20 ML/HR. GOING ON. TOLERATING WELL. HAS A NGT TO RT. NARES TO LOW INTERMITTENT SUCTION W/ GREENISH COLOR DRAINAGE. W/ SOFT WRIST RESTRAINTS ON. INCONTINENT OF BLADDER. HAS A COLOSTOMY W/ RED TINGED URINE. ON CONTACT PRECAUTION FOR C-DIFF. PT. IS ON NPO STATUS. WILL CONTINUE TO MONITOR. CALL LIGHT W/ REACH.
[2018-09-21] VITALS (7 sets, daily range): BP systolic 96–135; BP diastolic 58–78
[2018-09-21] MEDS: VANCOMYCIN HCL 125 MG/2.5 ML ORAL.SUSP GT SCH ×4 (00:33→18:03)
[2018-09-21] MEDS: INSULIN REGULAR, HUMAN 100 UNIT/ML 3 ML VIAL SQ PRN ×4 (01:35→18:12)
[2018-09-21] MEDS: METRONIDAZOLE 500MG/ NS 100ML 500 MG in PREMIX 1 EA IV SCH ×3 (05:47→21:41)
[2018-09-21] MEDS: BLOOD SUGAR DIAGNOSTIC 1 EACH STRIP IN SCH ×5 (06:03→23:27)
--- NOTE | 2018-09-21 07:26 | NUR ---
TELE/RN NOTES: REPORT GIVEN TO NEXT SHIFT NURSE FOR GEORGE.
--- NOTE | 2018-09-21 07:45 | NUR ---
TELE/RN NOTES: RECEIVED PT IN BED ALERT/ORIENTED X 2. ON TELE MONITOR W/ STHR 112 . ABLE TO FOLLOW SIMPLE COMMANDS. ON MECH. VENTILATOR TOLERATING SETTINGS WELL.AMBU BAT AT HOB AT ALL TIME W/ RT. UPPER ARM MIDLINE W/ TPN # 15 AT 60 ML/HR. W/ LIPID GOING ON AT 20 ML/HR. GOING ON. TOLERATING WELL. HAS A NGT TO RT. NARES TO LOW INTERMITTENT SUCTION W/ DARK BROWN COLOR DRAINAGE. W/ SOFT WRIST RESTRAINTS ON. HAS A COLOSTOMY . ON CONTACT PRECAUTION FOR C-DIFF. PT. IS ON NPO STATUS. WILL CONTINUE TO MONITOR. CALL LIGHT W/ REACH.WITH RECTAL TUBE ORDERED NO STOOL NOTED , WILL CONT TO MONITOR CLOSELY
[2018-09-21 07:58] LABS: EOSINOPHILS % (AUTO) 0.6 % (0.0-6.0); HEMATOCRIT 30 % (39-51); HEMOGLOBIN 9.5 g/dL (13.5-17.5); LYMPHOCYTES # (AUTO) 0.1 /CMM (0.8-4.8); LYMPHOCYTES % (AUTO) 1.3 % (20.0-44.0); MEAN CORPUSCULAR HGB CONC 32 g/dl (31.0-36.0); MEAN CORPUSCULAR VOLUME 85 fL (80-96); MONOCYTES # (AUTO) 0.9 /CMM (0.1-1.30); MONOCYTES % (AUTO) 10.7 % (2.0-12.0); NEUTROPHILS # (AUTO) 7.2 /CMM (1.8-8.9); NEUTROPHILS % (AUTO) 87.4 % (43.0-81.0); PLATELET COUNT (AUTO) 117 /CMM (150-450); RED BLOOD CELL COUNT(AUTO) 3.54 MIL/uL (4.5-6.0); WHITE BLOOD COUNT (AUTO) 8.2 K/uL (4.3-11.0)
[2018-09-21 08:11] LABS: CALCIUM, SERUM 7.5 mg/dL (8.5-10.1); CREATININE 1.4 mg/dL (0.6-1.3); MAGNESIUM 2.3 mg/dL (1.8-2.4); PHOSPHORUS 3.3 mg/dL (2.5-4.9); POTASSIUM 3.5 mmol/L (3.5-5.1)
[2018-09-21] MEDS: PANTOPRAZOLE 40 MG VIAL IV SCH (08:29)
[2018-09-21] MEDS: FAMOTIDINE/PF INJ 20 MG/2 ML VIAL IV SCH (08:29)
[2018-09-21] MEDS: TOBRAMYCIN 80 MG/2 ML VIAL INH SCH ×2 (08:55→21:11)
[2018-09-21] MEDS ORDERED: TPN BAG #18 IV PRN ×6 (09:00)
--- NOTE | 2018-09-21 10:30 | NUR ---
PHYSICIAN ADVISOR NOTE FREQUENT TRACH SUCTION DONE , TURN REPOSITION ,FLUSHED RECTAL TUBE ,ABDOMEN STILL DISTENDED, CONT TO LOW INTERMITTED SUCTION WITH YELLOW BROWN COLOR OF DRAINAGE , ALL NEEDS ATTENDED, CONT ON SOFT RESTRAIN ,WILL CONT TO MONITOR CLOSELY, STILL UNABLE TO REMOVE AT HIGH RISK TO REMOVE ALL LINES
--- NOTE | 2018-09-21 12:40 | NUR ---
telecommunications facility examiner note seen by Melvin vanegas rn brass buffer notifyed that ht [address] st and colostomy with 150 ml liquid stool . rectal tube in place, no out noted also notifyed that suction with low intermitted 600 ml brown color and abdomen still distended ,kub done earlier , stated that sow images ,will f\u
--- NOTE | 2018-09-21 15:00 | NUR ---
FASHION MERCHANDISER NOTE CONT ON TPN ORDERED AND LIPIDS ,WILL CONT TO MONITOR, TRACH SUCTION SOME , TURN REPOSITION
--- NOTE | 2018-09-21 17:46 | NUR ---
COAL CHEMIST NOTE WITH LABORED RESPIRATION, SAT 89-90% RT AT BEDSIDE , CALLED TO KATHIE TYSON RN SEISMOGRAPHER WITH ORDER STAT ABG, RT AT BEDSIDE ,DOING NOW WILL F\U Addendum: 09/21/18 at 1810 by FRACISCO MERCER RN KATHIE VARNER RN SEISMOGRAPHER AWARE THAT HR ST 125 AND ABDOMEN STILL DISTENDED AND MORE FIRM TO TOUCH, NO OUTPUT FROM RECTAL TUBE, ALSO AWARE THAT VANCO INSERTED VIA N GTUBE AND HOLD SUCTION FOR 1 HOUR ,WILL F\U ,AWARE THAT GASTRIC CONTENTS FOR NOW 650 ML
[2018-09-21 17:52] LABS: ABG BASE EXCESS -1.3 mmol/L; ABG OXYGEN SATURATION 89.7 % (92.0-98.5); ABG PCO2 44.9 mmHg (35.0-45.0); ABG PH 7.352 (7.350-7.450); ABG PO2 67.9 mmHg (75.0-100.0); AaDO2 201.9 mmHg; COHb 0.5 % (0.5-1.5); MetHb 0.4 % (0.0-1.5); O2Hb 88.9 % (94.0-97.0); PEEP,BG 5 cm H2O; SITE, ABG Right Radial; VT, ABG 550 mL
[2018-09-21] MEDS: FLUCONAZOLE IN NS 100 MG in PREMIX 1 EA IV SCH ×2 (17:54)
--- NOTE | 2018-09-21 18:00 | NUR ---
VAMP PRESSER NOTE ABG RESULT DONE ,PER RT NOT IN ACUTE DISTRESS ,WILL F\U
--- NOTE | 2018-09-21 19:03 | NUR ---
AUTOMOBILE PARTS ASSEMBLER NOTE PATIENT POLLED NG TUBE .NEW ONE INSERTED ON LT SAIRA, ORDERED CHEST X RAY FOR VERIFICATION PLACEMENT, BY AUSCULTATION VERIFICATION DONE , CONT TO LOW INTERMITTED SUCTION
--- NOTE | 2018-09-21 20:12 | NUR ---
TELE/RN NOTES: RECEIVED PT IN BED ALERT/ORIENTED X 2. ON TELE MONITOR W/ STHR 115. ABLE TO FOLLOW SIMPLE COMMANDS. ON MECH. VENTILATOR TOLERATING SETTINGS WELL.AMBU BAT AT HOB AT ALL TIME W/ RT. UPPER ARM MIDLINE W/ TPN # 15 AT 60 ML/HR. W/ LIPID GOING ON AT 20 ML/HR. GOING ON. TOLERATING WELL. HAS A NGT TO RT. NARES TO LOW INTERMITTENT SUCTION W/ DARK BROWN COLOR DRAINAGE. W/ SOFT WRIST RESTRAINTS ON. HAS A COLOSTOMY . ON CONTACT PRECAUTION FOR C-DIFF. PT. IS ON NPO STATUS. WILL CONTINUE TO MONITOR. CALL LIGHT W/ REACH.WITH RECTAL TUBE ORDERED NO STOOL NOTED , WILL CONT TO MONITOR CLOSELY
[2018-09-22] MEDS: VANCOMYCIN HCL 125 MG/2.5 ML ORAL.SUSP GT SCH ×4 (00:14→17:25)
[2018-09-22 02:20] VITALS: BP 97/55
--- NOTE | 2018-09-22 02:43 | NUR ---
PT REC'D TRACHED ON [facility] VENT ON AC MODE. NO RESP DISTRESS OR SOB NOTED. SX'D FOR SMALL AMT FOR THICK YELLOW SECRETIONS. TRACH PATENT AND SECURED. SHANK PAPERER CUFF PRESSURE NOTED, HIGH PRESSURES NOTED THROUGHOUT SHIFT. ALARMS ARE AUDIBLE. VENT PLUGGED INTO RED OUTLET. AMBU BAG BEDSIDE. WILL CONTINUE TO MONITOR Addendum: 09/22/18 at 0250 by LEANNE MULLER RT Amended: Links added.
[2018-09-22 04:37] VITALS: BP 92/51
[2018-09-22] MEDS: METRONIDAZOLE 500MG/ NS 100ML 500 MG in PREMIX 1 EA IV SCH ×3 (05:00→21:12)
[2018-09-22] MEDS: BLOOD SUGAR DIAGNOSTIC 1 EACH STRIP IN SCH ×3 (05:00→17:46)
--- NOTE | 2018-09-22 06:22 | NUR ---
FOOD SAFETY SPECIALIST CLOSING NOTES: ENDORSED PT. IN BED W/ SON BY BEDSIDE. A/O X 4. DENIES ANY C/O CHEST PAIN OR SOB AT PRESENT. ON TELE MONITOR W/ AFLUTTER 70'S. CONTINENT OF B/B. LFA G 20 PATENT AND INTACT W/ NO S/S OF INFECTION/INFILTRATION NOTED. C/O PAIN W/ PRN MEDS GIVEN W/ GOOD RELIEF. WILL CONTINUE TO MONITOR.
--- NOTE | 2018-09-22 07:00 | NUR ---
COMPANY DOCTOR OPENING NOTES RECEIVED PT LYING ON BED.ALERT/ORIENTEDX1.ON VENT DEPENDENT,TOLERATING WELL FOR NOW.ON TELE HR IS [address]NO SOB AND ACUTE DISTRESS NOTED.NG TUBE IS IN PLACE WITH LOW CONTINUOS SUCTION WITH GASTRIC FLUID IS DRAINING.RIGHT UA MIDLINE IS PRESENT G18,SITE IS CLEAN,DRY AND INTACT.NO INFILTRATION NOTED.SAFETY IS MAINTAINED AT ALL TIMES.B/L WRIST RESTRAINT IS PRESENT FOR SAFETY.CALL LIGHT IS WITHIN REACH.WILL CONTINUE TO MONITOR THE PT CLOSELY.
[2018-09-22 07:16] LABS: CALCIUM, SERUM 7.4 mg/dL (8.5-10.1); CARBON DIOXIDE 28 mmol/L (21-32); CHLORIDE 109 mmol/L (98-107); CREATININE 1.4 mg/dL (0.6-1.3); GLUCOSE 145 mg/dL (74-106); POTASSIUM 3.3 mmol/L (3.5-5.1); SODIUM SERUM 144 mmol/L (136-145); UREA NITROGEN, BLOOD 59 mg/dL (7-18)
[2018-09-22 07:17] LABS: MAGNESIUM 2.1 mg/dL (1.8-2.4); PHOSPHORUS 2.9 mg/dL (2.5-4.9)
[2018-09-22 07:26] LABS: LDL 15 mg/dL (0-99); TRIGLYCERIDES 132 mg/dL (30-150)
[2018-09-22 07:29] LABS: BASOPHILS % (AUTO) 0.2 % (0.0-2.0); EOSINOPHILS % (AUTO) 0.3 % (0.0-6.0); HEMATOCRIT 25 % (39-51); LYMPHOCYTES # (AUTO) 0.2 /CMM (0.8-4.8); LYMPHOCYTES % (AUTO) 4.4 % (20.0-44.0); MEAN CORPUSCULAR HGB CONC 32 g/dl (31.0-36.0); MEAN CORPUSCULAR VOLUME 85 fL (80-96); MONOCYTES # (AUTO) 0.3 /CMM (0.1-1.30); NEUTROPHILS # (AUTO) 4.9 /CMM (1.8-8.9); NEUTROPHILS % (AUTO) 89.1 % (43.0-81.0); PLATELET COUNT (AUTO) 94 /CMM (150-450); WHITE BLOOD COUNT (AUTO) 5.5 K/uL (4.3-11.0)
[2018-09-22 07:41] LABS: CHOLESTEROL < 50 mg/dL (<200); HDL CHOLESTEROL < 10 mg/dL (40-60)
[2018-09-22 08:00] VITALS: BP 128/68
[2018-09-22] MEDS: PANTOPRAZOLE 40 MG VIAL IV SCH (08:29)
[2018-09-22] MEDS: FAMOTIDINE/PF INJ 20 MG/2 ML VIAL IV SCH (08:30)
[2018-09-22] MEDS: TOBRAMYCIN 80 MG/2 ML VIAL INH SCH ×2 (09:05→21:11)
[2018-09-22] MEDS: INSULIN REGULAR, HUMAN 100 UNIT/ML 3 ML VIAL SQ PRN (11:56)
[2018-09-22 12:00] VITALS: BP 103/64
[2018-09-22 16:00] VITALS: BP 88/54
[2018-09-22] MEDS: FLUCONAZOLE IN NS 100 MG in PREMIX 1 EA IV SCH ×2 (17:24)
--- NOTE | 2018-09-22 18:48 | NUR ---
FINANCIAL REPORTING ACCOUNTANT CLOSING NOTES ENDORSED TO LANDSCAPE MANAGEMENT TECHNICIAN RN AT BEDSIDE.PT IS ALERT/ORIENTED X1.WITH VENT DEPENDENT,SATURATING 92%.NO SOB AND ACUTE DISTRESS NOTED.NO SIGNIFICANT CHANGES NOTED IN THE SHIFT.NG TUBE DRAINAGE WITH LOW CONTINUOS SUCTION IS PRESENT,DRAINING GASTRIC FLUID.FLEXICAL IS PRESENT,NO BOWEL MOVEMENT NOTED.COLOSTOMY BAG IS DRAINING.ON TELE HR IS [address]
[2018-09-22 20:00] VITALS: BP 90/53
--- NOTE | 2018-09-22 20:12 | NUR ---
TELE/RN NOTES: RECEIVED PT IN BED ALERT/ORIENTED X 2. ON TELE MONITOR W/ STHR 115. NOT ABLE TO FOLLOW SIMPLE COMMANDS. ON MECH. VENTILATOR TOLERATING SETTINGS WELL.AMBU BAT AT HOB AT ALL TIME W/ RT. UPPER ARM MIDLINE W/ TPN # 15 AT 60 ML/HR. TOLERATING WELL. HAS A NGT TO RT. NARES TO LOW INTERMITTENT SUCTION W/ DARK BROWN COLOR DRAINAGE. W/ SOFT WRIST RESTRAINTS ON. HAS A COLOSTOMY . ON CONTACT PRECAUTION FOR C-DIFF. PT. IS ON NPO STATUS. WILL CONTINUE TO MONITOR. CALL LIGHT W/ REACH.WITH RECTAL TUBE ORDERED NO STOOL NOTED , WILL CONT TO MONITOR CLOSELY
--- NOTE | 2018-09-22 22:35 | NUR ---
DIVISION TOLL WIRE CHIEF NOTE BREAKER OPERATOR' NOTED PT SB 42 FROM SINUS TACHY 100'S. IMMEDIATELY WENT TO PT RM WITH RT MANAN PRESENT TO ASSESS PT, NOTED PT PALE, PULSE AND PULSE SATURATION FLUCTUATING UP AND DOWN 90'% TO 65%, CHARGE NURSE CORIN AT BEDSIDE TO ASSESS PT.
--- NOTE | 2018-09-22 22:40 | NUR ---
RN NOTE CALLED DAD DEMI TAYLOR, REGARDING PT NOTED CHANGE IN VS, IF POSSIBLE TO COME AND BE WITH PT BEFORE EXPIRING. "STATED HE LEAVES 1HR40 MINUTES AWAY FROM HOSPITAL AND WOULD NOT MAKE IT"
--- NOTE | 2018-09-22 22:53 | NUR ---
RN NOTE 7270 STILL ON THE PHONE WITH DEMI TAYLOR DISCUSSING PLAN TO COME, PT FLAT LINES ON MONITOR AND PRONOUNCED BY CHARGE NURSE, CORIN NAVARRETE.
--- NOTE | 2018-09-22 22:53 | NUR ---
RN NOTE PT NOTED WITH HR SLOWING DOWN TO ASYSTOLE ON SYSTEMS PROTECTION TECHNICIAN, CHARGE NURSE AND RAILWAY SWITCH OPERATOR NURSES AT BEDSIDE CONTINUING TO ASSESS PT, BP UN APPRECIATED, NO RISING AND FALLING OF CHEST, NO PALPABLE PULSE, NO AUDIBLE HR TONE NOTED. PUPILS FIXED AND DILATED. PRONOUNCED BY CHARGE NURSE AT 2253 PM PT DNR, KEPT COMFORTABLE BEFORE PASSING.
--- NOTE | 2018-09-22 22:59 | NUR ---
NURSING PICTURE FRAME MAKER MADE AWARE WELL Beltran QUIJANO
--- NOTE | 2018-09-22 23:00 | NUR ---
RN NOTE [facility] CALLED SPOKE TO JOHNATHAN AGARWAL INFORMATION PROVIDED, SUGGESTED TO CALL BACK DUE TO HEAVY CALL VOLUME AT THIS TIME. Addendum: 09/23/18 at 0030 by DOC MULTANI RN 0 EXACT TIME PLACED CALL.
--- NOTE | 2018-09-22 23:05 | NUR ---
CALLED BACK DEMI TAYLOR TO ASK IF PLANS FOR MORTUARY WERE ARRANGED. NO ARRANGEMENTS MADE AT THIS TIME PER DAD.
--- NOTE | 2018-09-22 23:15 | NUR ---
[facility] CALLED BACK SPOKE TO CAROLINE SHAH # R [id number] INFORMATION GIVEN, STATED "WE WILL NOT HARVEST, OKAY TO RELEASE THE BODY", CHARGE NURSE MADE AWARE.
--- NOTE | 2018-09-22 23:51 | NUR ---
RN NOTE BODY TRANSFERRED [place] [facility] [place] [facility]SING STAFF. FAMILY MADE AWARE OF ARRANGEMENTS.
[2018-09-23] MEDS ORDERED: TPN BAG #19 IV PRN ×8 (05:00)
== END 2018-09-22 22:53 | disposition expired | DRG 721 ==
LOC: TELE1 23:29 → TELE-TD 09-09 00:04 → TELE1 09-09 09:47
PROVIDERS: ADMIT Nurse Practitioner Acute Care; ATTEND Nurse Practitioner Acute Care
PROC: 5A1955Z Respiratory Ventilation, Greater than 96 Consecutive Hours (ICD-10-PCS; principal; 2018-09-08)
PROC: 05H533Z Insertion of Infusion Device into Right Subclavian Vein, Percutaneous Approach (ICD-10-PCS; 2018-09-09)
PROC: 0JPT3WZ Removal of Totally Implantable Vascular Access Device from Trunk Subcutaneous Tissue and Fascia, Percutaneous Approach (ICD-10-PCS; 2018-09-12)
DX: T80.211A Bloodstream infection due to central venous catheter, initial encounter (principal); R65.21 Severe sepsis with septic shock; J69.0 Pneumonitis due to inhalation of food and vomit; E43 Unspecified severe protein-calorie malnutrition; G93.40 Encephalopathy, unspecified; Z99.11 Dependence on respirator [ventilator] status; A41.9 Sepsis, unspecified organism; A04.72 Enterocolitis due to Clostridium difficile, not specified as recurrent; Y84.8 Other medical procedures as the cause of abnormal reaction of the patient, or of later complication, without mention of misadventure at the time of the procedure; D69.6 Thrombocytopenia, unspecified; J96.11 Chronic respiratory failure with hypoxia; R53.2 Functional quadriplegia; Z93.0 Tracheostomy status; Z88.0 Allergy status to penicillin; Z93.3 Colostomy status; N39.0 Urinary tract infection, site not specified; E83.39 Other disorders of phosphorus metabolism; E83.42 Hypomagnesemia; E87.2 Acidosis; B37.7 Candidal sepsis; G80.8 Other cerebral palsy; K56.7 Ileus, unspecified; Z74.01 Bed confinement status; M41.9 Scoliosis, unspecified; G40.909 Epilepsy, unspecified, not intractable, without status epilepticus; E88.09 Other disorders of plasma-protein metabolism, not elsewhere classified; M62.50 Muscle wasting and atrophy, not elsewhere classified, unspecified site; Z68.31 Body mass index [BMI] 31.0-31.9, adult; Z66 Do not resuscitate; B37.49 Other urogenital candidiasis; Q79.2 Exomphalos; K56.609 Unspecified intestinal obstruction, unspecified as to partial versus complete obstruction; S10.93XA Contusion of unspecified part of neck, initial encounter; X58.XXXA Exposure to other specified factors, initial encounter; Y93.9 Activity, unspecified; E65 Localized adiposity; D63.8 Anemia in other chronic diseases classified elsewhere; B96.5 Pseudomonas (aeruginosa) (mallei) (pseudomallei) as the cause of diseases classified elsewhere; Z93.2 Ileostomy status; Y92.129 Unspecified place in nursing home as the place of occurrence of the external cause
CPT/HCPCS: 31720; 36415; 36569; 36600; 71045-TC; 74018; 76882; 80048-TC; 80053-TC; 80061-TC; 82378; 82803-TC; 82962-TC; 83605-TC; 83735-TC; 84100-TC; 84478-TC; 85025-TC; 87040-TC; 87070-TC; 87081-TC; 87086-TC; 87186-TC; 93970-TC; 94002-TC; 94003-TC; 94760-TC; 94762-TC; 94799-TC; 99082-TC; A4216; A4217; A4349; A4623; A6253; A6402; A6403; A7526; C9113; G0378; J0692; J1200; J1450; J1815; J2060; J2185; J2248; J2405; J2930; J3260; J3370; J3475; J3480; J3490; J7030; J7050; J7060; Q9967